=== PATIENT | male | born 1945 | race Caucasian/White ===

== ENCOUNTER → 2016-11-15 | Outpatient (CLI) | payer MEDICARE ==
[~2016-11-15] MED LIST: CATHETER FLUSH 10 ML SYR IV PRN; IOHEXOL 350 MG/ML 100 ML (OMNIPAQUE 350) VIAL IV ONE; NS 100 ML (IVPB) BAG IV ONE
--- OUTSIDE RECORDS SUMMARY | 2016-11-15 11:55 | XMS REPORT | Continuity of Care Document ---
Author Author [facility] Organization [facility] Address Unknown Phone Unavailable Care Team Providers Care It Sales Representative Name Role Phone MARS REESE MD PCP Insurance Providers Payer Name Policy Number Subscriber Name Relationship [employer] [id number] Khushboo Castillo P 20 Self / Same As Patient Advance Directives Directive Response Recorded Date/Time Advance Directives No 08/03/08 12:14am Health Care Power of Mixing Place Supervisor No 08/03/08 12:14am Organ Donor No [...] Discharge/Depart Date Attending Provider Discharged Recurring [facility] 03/17/16 12:56pm 11:59pm YASMINE CHAVEZ
--- NOTE | 2016-11-15 13:39 | Diagnostic Imaging Report ---
PROCEDURE: CT chest with contrast only. TECHNIQUE: Multiple contiguous axial images were obtained through the chest after administration of intravenous contrast. INDICATION: Lung cancer. COMPARISON: PET/CT of 10/15/2013. FINDINGS: Lungs and airway: Post treatment changes in the right upper lobe with medial bandlike consolidations along the mediastinum, likely from prior radiation. There is no irregular convex border of the consolidated and atelectatic lung to suggest recurrent tumor. Irregular nodularity along the right mainstem bronchus is unchanged. No concerning pulmonary nodule or mass on the left. Ill-defined spiculated nodular opacities in the superior left upper lobe are unchanged and likely represent focus of scar of scattered centrilobular emphysema within the left lung. Pleura: No pleural effusion or pneumothorax. No pleural nodularity. Heart and mediastinum: Visualized thyroid is normal. No supraclavicular or axillary lymphadenopathy. Stable soft tissue surrounding the right mainstem bronchus. No mediastinal or hilar lymphadenopathy. No juxtaphrenic lymphadenopathy. Normal heart size without pericardial effusion. Normal caliber thoracic aorta. Upper abdomen: Stable low-attenuation nodularity of the left adrenal gland measuring up to 3.0 cm, likely from benign adenoma. No new suspicious focus in the upper abdomen. Musculoskeletal: No evidence of skeletal metastasis. Age-indeterminate but likely chronic compression fracture in the midthoracic spine. IMPRESSION: 1. Post treatment changes in the right upper hemithorax likely from radiation therapy. No evidence of recurrent neoplasm. 2. No suspicious pulmonary nodules or intrathoracic lymphadenopathy to suggest intrathoracic metastasis. 3. Stable low-attenuation nodularity of the left adrenal gland likely due to benign lipid rich adenoma. Dictated by: Dictated on workstation # [id number]
== END ==
LOC: RAD 11:51
PROVIDERS: ATTEND Nurse Practitioner Adult Health
DX: C34.11 Malignant neoplasm of upper lobe, right bronchus or lung (principal)
CPT/HCPCS: 71260

== ENCOUNTER 2016-11-29 10:33 | Outpatient (RCR) | payer MEDICARE ==
--- OUTSIDE RECORDS SUMMARY | 2016-11-15 10:29 | XMS REPORT | Continuity of Care Document ---
Author Author [facility] Organization [facility] Address Unknown Phone Unavailable Care Team Providers Care Collator Hand Name Role Phone MARS REESE MD PCP Insurance Providers Payer Name Policy Number Subscriber Name Relationship [employer] [id number] Khushboo Castillo P 20 Self / Same As Patient Advance Directives Directive Response Recorded Date/Time Advance Directives No 08/03/08 12:14am Health Care Power of Dietary Supervisor No 08/03/08 12:14am Organ Donor No 08/03/08 12:14am Problems No problem information available. Medications No medication information available. Social History Social History Problem Response Recorded Date/Time Recent Foreign Travel N [place] 03/17/2016 12:56pm Hospital Discharge Instructions No hospital discharge instructions. Plan of Care Prescriptions See Medication Section Functional Status No functional status results. Allergies, Adverse Reactions, Alerts No allergy information available. Immunizations No immunization records. Vital Signs No known vital signs results. Results Laboratory Results Test Name Result Units Flags Reference Collection Date/Time Result Date/ Time Comments White Blood Count 6.6 10^3/uL 4.3-11.0 03/17/2016 1:22pm 03/17/2016 1: 30pm Red Blood Count 4.86 10^6/uL 4.35-5.85 03/17/2016 1:22pm 03/17/2016 1: 30pm Hemoglobin 14.5 G/DL 13.3-17.7 03/17/2016 1:22pm 03/17/2016 1:30pm Hematocrit 43 % 40-54 03/17/2016 1:03/17/2016 1:30pm Mean Corpuscular Volume 88 FL 80-99 03/17/2016 1:03/17/2016 1: 30pm Mean Corpuscular Hemoglobin 30 PG 25-34 03/17/2016 1:03/17/2016 1: 30pm Mean Corpuscular Hemoglobin Concent 34 G/DL 32-36 03/17/2016 1:03/2016 1:30pm Red Cell Distribution Width 14.4 % 10.0-14.5 03/17/2016 1:2015 1:30pm Platelet Count 215 10^3/uL 130-400 03/17/2016 1:03/17/2016 1:30pm Mean Platelet Volume 9.4 FL 7.4-10.4 03/17/2016 1:03/17/2016 1: 30pm Neutrophils (%) (Auto) 77 % H 42-75 03/17/2016 1:03/17/2016 1:30pm Lymphocytes (%) (Auto) 12 % 12-44 03/17/2016 1:03/17/2016 1:30pm Monocytes (%) (Auto) 10 % 0-12 03/17/2016 1:03/17/2016 1:30pm Eosinophils (%) (Auto) 2 % 0-10 03/17/2016 1:03/17/2016 1:30pm Basophils (%) (Auto) 1 % 0-10 03/17/2016 1:03/17/2016 1:30pm Neutrophils # (Auto) 5.1 X 10^3 1.8-7.8 03/17/2016 1:03/17/2016 1: 30pm Lymphocytes # (Auto) 0.8 X 10^3 L 1.0-4.0 03/17/2016 1:03/17/2016 1: 30pm Monocytes # (Auto) 0.6 X 10^3 0.0-1.0 03/17/2016 1:03/17/2016 1: 30pm Eosinophils # (Auto) 0.1 10^3/uL 0.0-0.3 03/17/2016 1:03/17/2016 1 :30pm Basophils # (Auto) 0.1 10^3/uL 0.0-0.1 03/17/2016 1:03/17/2016 1: 30pm Sodium Level 143 MMOL/L 135-145 03/17/2016 1:03/17/2016 2:10pm Potassium Level 4.8 MMOL/L 3.6-5.0 03/17/2016 1:03/17/2016 2:10pm Chloride Level 106 MMOL/L 98-107 03/17/2016 1:03/17/2016 2:10pm Carbon Dioxide Level 34 MMOL/L H 21-32 03/17/2016 1:03/17/2016 2: 10pm Anion Gap 3 MMOL/L L 5-14 03/17/2016 1:03/17/2016 2:10pm Blood Urea Nitrogen 15 MG/DL 7-18 03/17/2016 1:03/17/2016 2:10pm Creatinine 1.03 MG/DL 0.60-1.30 03/17/2016 1:03/17/2016 2:10pm BUN/Creatinine Ratio 15 03/17/2016 1:03/17/2016 2:10pm Estimat Glomerular Filtration Rate > 60 03/17/2016 1:2015 2:10pm GFR INTERPRETIVE DATA UNITS FOR ESTIMATED GFR (eGFR): mL/min/1.73 M2 REFERENCE RANGE FOR ESTIMATED GFR (eGFR) eGFR NORMAL eGFR >60 MODERATELY DECREASED eGFR 30-59 SEVERLY DECREASED eGFR 15-29 KIDNEY FAILURE <15 (OR DIALYSIS) Glucose Level 82 MG/DL 70-105 03/17/2016 1:03/17/2016 2:10pm Calcium Level 9.4 MG/DL 8.5-10.1 03/17/2016 1:03/17/2016 2:10pm Total Bilirubin 0.6 MG/DL 0.1-1.0 03/17/2016 1:03/17/2016 2:10pm Alkaline Phosphatase 55 U/L 40-136 03/17/2016 1:03/17/2016 2:10pm Aspartate Amino Transf (AST/SGOT) 17 U/L 5-34 03/17/2016 1:2015 2:10pm Alanine Aminotransferase (ALT/SGPT) 11 U/L 0-55 03/17/2016 1:22pm 03/17 2:10pm Total Protein 6.4 G/DL 6.4-8.2 03/17/2016 1:22pm 03/17/2016 2:10pm Albumin 4.0 G/DL 3.2-4.5 03/17/2016 1:22pm 03/17/2016 2:10pm Procedures No known history of procedures. Encounters Encounter Location Arrival/Admit Date Discharge/Depart Date Attending Provider Discharged Recurring [facility] 03/17/16 12:56pm 11:59pm YASMINE CHAVEZ
[2016-11-15 11:28] LABS: BASOPHILS # (AUTO) 0.1 10^3/uL (0.0-0.1); BASOPHILS % (AUTO) 1 % (0-10); EOSINOPHILS # (AUTO) 0.2 10^3/uL (0.0-0.3); EOSINOPHILS % (AUTO) 4 % (0-10); LYMPHOCYTES # (AUTO) 0.8 X 10^3 (1.0-4.0); LYMPHOCYTES % (AUTO) 13 % (12-44); MEAN CORPUSCULAR HEMOGLOBIN 29 PG (25-34); MEAN CORPUSCULAR HGB CONC 33 G/DL (32-36); MEAN CORPUSCULAR VOLUME 87 FL (80-99); MEAN PLATELET VOLUME 9.5 FL (7.4-10.4); MONOCYTES # (AUTO) 0.5 X 10^3 (0.0-1.0); MONOCYTES % (AUTO) 9 % (0-12); NEUTROPHILS # (AUTO) 4.2 X 10^3 (1.8-7.8); NEUTROPHILS % (AUTO) 72 % (42-75); PLATELET COUNT 218 10^3/uL (130-400); RED CELL DISTRIBUTION WIDTH 14.9 % (10.0-14.5); WHITE BLOOD COUNT 5.8 10^3/uL (4.3-11.0)
[2016-11-15 12:38] LABS: ALANINE AMINOTRANSFERASE 15 U/L (0-55); ALBUMIN 3.8 G/DL (3.2-4.5); ANION GAP 8 MMOL/L (5-14); ASPARTATE AMINO TRANSFERASE 19 U/L (5-34); BILIRUBIN,TOTAL 0.7 MG/DL (0.1-1.0); BLOOD UREA NITROGEN 17 MG/DL (7-18); BUN/CREATININE RATIO 15; CALCIUM 8.8 MG/DL (8.5-10.1); CARBON DIOXIDE 27 MMOL/L (21-32); CHLORIDE 106 MMOL/L (98-107); GFR ESTIMATED > 60; GLUCOSE 83 MG/DL (70-105); SODIUM 141 MMOL/L (135-145)
== END 2017-02-13 | disposition home or self-care (01) ==
LOC: ONC 10:33
PROVIDERS: ATTEND Internal Medicine Hematology & Oncology
DX: Z08 Encounter for follow-up examination after completed treatment for malignant neoplasm (principal); Z85.118 Personal history of other malignant neoplasm of bronchus and lung; N18.3 Chronic kidney disease, stage 3 (moderate); M81.0 Age-related osteoporosis without current pathological fracture; F17.220 Nicotine dependence, chewing tobacco, uncomplicated; Z79.82 Long term (current) use of aspirin; Z92.21 Personal history of antineoplastic chemotherapy; Z92.3 Personal history of irradiation
CPT/HCPCS: 36415; 80053; 85025; 99213

== ENCOUNTER 2017-07-31 10:09 | Outpatient (RCR) | payer MEDICARE ==
[2017-07-31 10:50] LABS: BASOPHILS # (AUTO) 0.1 10^3/uL (0.0-0.1); BASOPHILS % (AUTO) 1 % (0-10); EOSINOPHILS # (AUTO) 0.2 10^3/uL (0.0-0.3); EOSINOPHILS % (AUTO) 3 % (0-10); LYMPHOCYTES # (AUTO) 0.8 X 10^3 (1.0-4.0); LYMPHOCYTES % (AUTO) 13 % (12-44); MEAN CORPUSCULAR HEMOGLOBIN 30 PG (25-34); MEAN CORPUSCULAR HGB CONC 34 G/DL (32-36); MEAN CORPUSCULAR VOLUME 88 FL (80-99); MEAN PLATELET VOLUME 9.6 FL (7.4-10.4); MONOCYTES # (AUTO) 0.6 X 10^3 (0.0-1.0); MONOCYTES % (AUTO) 10 % (0-12); NEUTROPHILS # (AUTO) 4.3 X 10^3 (1.8-7.8); NEUTROPHILS % (AUTO) 72 % (42-75); PLATELET COUNT 180 10^3/uL (130-400); RED BLOOD COUNT 4.83 10^6/uL (4.35-5.85); RED CELL DISTRIBUTION WIDTH 14.2 % (10.0-14.5)
--- NOTE | 2017-07-31 11:15 | Diagnostic Imaging Report ---
INDICATION: Lung carcinoma. TECHNIQUE: 2-view chest 10:36 AM. CORRELATION STUDY: 03/17/2016. FINDINGS: Consolidated appearance of the right lung apex is again demonstrated, may be owing to pleural thickening versus some consolidated lung. There is also tenting and scarring about the right diaphragm with pleural thickening present. The left lung demonstrate minimal areas of likely scar like formation emanating from the suprahilar region. This is relatively stable in its appearance. Heart size and mildly prominent mediastinum are generally stable. Vasculature within normal limits. Unchanged compressed mid thoracic vertebral body and degenerative changes of the thoracic spine. IMPRESSION: Asymmetric areas of likely scarlike formation and volume loss of the right lung overall generally stable/ perhaps very slightly progressed involving the right lung apex. Additional likely scarring over the left perihilar region. Dictated by: Dictated on workstation # [id number]
[2017-07-31 11:36] LABS: ALANINE AMINOTRANSFERASE 18 U/L (0-55); ALBUMIN 3.8 GM/DL (3.2-4.5); ANION GAP 4 MMOL/L (5-14); ASPARTATE AMINO TRANSFERASE 19 U/L (5-34); BILIRUBIN,TOTAL 0.7 MG/DL (0.1-1.0); BLOOD UREA NITROGEN 16 MG/DL (7-18); BUN/CREATININE RATIO 15; CARBON DIOXIDE 30 MMOL/L (21-32); CHLORIDE 106 MMOL/L (98-107); CREATININE SERUM 1.08 MG/DL (0.60-1.30); GFR ESTIMATED > 60; GLUCOSE 93 MG/DL (70-105); SODIUM 140 MMOL/L (135-145); TOTAL PROTEIN 6.5 GM/DL (6.4-8.2)
== END 2017-08-07 09:45 | disposition home or self-care (01) ==
LOC: ONC 10:09
PROVIDERS: ATTEND Internal Medicine Hematology & Oncology
DX: Z08 Encounter for follow-up examination after completed treatment for malignant neoplasm (principal); Z85.118 Personal history of other malignant neoplasm of bronchus and lung; N18.3 Chronic kidney disease, stage 3 (moderate); M81.0 Age-related osteoporosis without current pathological fracture; F17.220 Nicotine dependence, chewing tobacco, uncomplicated; Z79.82 Long term (current) use of aspirin; Z92.21 Personal history of antineoplastic chemotherapy; Z92.3 Personal history of irradiation
CPT/HCPCS: 36415; 71020; 80053; 85025; 99213

== ENCOUNTER → 2018-01-15 | Outpatient (CLI) | payer MEDICARE ==
[2018-01-15 10:19] LABS: BASOPHILS % (AUTO) 0 % (0-10); EOSINOPHILS # (AUTO) 0.1 10^3/uL (0.0-0.3); EOSINOPHILS % (AUTO) 1 % (0-10); HEMATOCRIT 41 % (40-54); HEMOGLOBIN 13.5 G/DL (13.3-17.7); LYMPHOCYTES # (AUTO) 0.7 X 10^3 (1.0-4.0); LYMPHOCYTES % (AUTO) 5 % (12-44); MEAN CORPUSCULAR HEMOGLOBIN 30 PG (25-34); MEAN CORPUSCULAR HGB CONC 33 G/DL (32-36); MEAN CORPUSCULAR VOLUME 90 FL (80-99); MEAN PLATELET VOLUME 9.7 FL (7.4-10.4); MONOCYTES # (AUTO) 1.3 X 10^3 (0.0-1.0); MONOCYTES % (AUTO) 10 % (0-12); NEUTROPHILS # (AUTO) 11.4 X 10^3 (1.8-7.8); NEUTROPHILS % (AUTO) 85 % (42-75); PLATELET COUNT 173 10^3/uL (130-400); RED BLOOD COUNT 4.58 10^6/uL (4.35-5.85); RED CELL DISTRIBUTION WIDTH 16.3 % (10.0-14.5); WHITE BLOOD COUNT 13.5 10^3/uL (4.3-11.0)
[2018-01-15 10:39] LABS: ALANINE AMINOTRANSFERASE 37 U/L (0-55); ALBUMIN 3.5 GM/DL (3.2-4.5); ALKALINE PHOSPHATASE 52 U/L (40-136); BILIRUBIN,TOTAL 0.7 MG/DL (0.1-1.0); BUN/CREATININE RATIO 20; CALCIUM 8.7 MG/DL (8.5-10.1); CARBON DIOXIDE 33 MMOL/L (21-32); CHLORIDE 102 MMOL/L (98-107); CREATININE SERUM 0.96 MG/DL (0.60-1.30); GFR ESTIMATED > 60; GLUCOSE 79 MG/DL (70-105); POTASSIUM 3.7 MMOL/L (3.6-5.0); SODIUM 139 MMOL/L (135-145); TOTAL PROTEIN 5.9 GM/DL (6.4-8.2)
== END ==
LOC: ONC 10:00
PROVIDERS: ATTEND Internal Medicine Hematology & Oncology
DX: Z08 Encounter for follow-up examination after completed treatment for malignant neoplasm (principal); Z85.118 Personal history of other malignant neoplasm of bronchus and lung; N18.3 Chronic kidney disease, stage 3 (moderate); M81.0 Age-related osteoporosis without current pathological fracture; F17.220 Nicotine dependence, chewing tobacco, uncomplicated; Z79.82 Long term (current) use of aspirin; Z92.21 Personal history of antineoplastic chemotherapy; Z92.3 Personal history of irradiation
CPT/HCPCS: 36415; 80053; 83615; 85025; 99213

== ENCOUNTER 2018-03-28 12:43 | Outpatient (RCR) | payer MEDICARE ==
[2018-02-14 09:54] LABS: BASOPHILS % (AUTO) 0 % (0-10); EOSINOPHILS % (AUTO) 0 % (0-10); HEMATOCRIT 40 % (40-54); HEMOGLOBIN 13.1 G/DL (13.3-17.7); LYMPHOCYTES # (AUTO) 0.5 X 10^3 (1.0-4.0); LYMPHOCYTES % (AUTO) 4 % (12-44); MEAN CORPUSCULAR HEMOGLOBIN 30 PG (25-34); MEAN CORPUSCULAR HGB CONC 33 G/DL (32-36); MEAN CORPUSCULAR VOLUME 91 FL (80-99); MEAN PLATELET VOLUME 9.4 FL (7.4-10.4); MONOCYTES # (AUTO) 0.5 X 10^3 (0.0-1.0); MONOCYTES % (AUTO) 5 % (0-12); NEUTROPHILS # (AUTO) 10.3 X 10^3 (1.8-7.8); NEUTROPHILS % (AUTO) 90 % (42-75); PLATELET COUNT 168 10^3/uL (130-400); RED BLOOD COUNT 4.41 10^6/uL (4.35-5.85); RED CELL DISTRIBUTION WIDTH 17.3 % (10.0-14.5); WHITE BLOOD COUNT 11.4 10^3/uL (4.3-11.0)
[2018-02-14 10:12] LABS: ALANINE AMINOTRANSFERASE 29 U/L (0-55); ALKALINE PHOSPHATASE 48 U/L (40-136); BILIRUBIN,TOTAL 0.4 MG/DL (0.1-1.0); BUN/CREATININE RATIO 20; CALCIUM 9.1 MG/DL (8.5-10.1); CARBON DIOXIDE 33 MMOL/L (21-32); CHLORIDE 108 MMOL/L (98-107); CREATININE SERUM 0.86 MG/DL (0.60-1.30); GFR ESTIMATED > 60; GLUCOSE 111 MG/DL (70-105); POTASSIUM 4.3 MMOL/L (3.6-5.0); SODIUM 144 MMOL/L (135-145); TOTAL PROTEIN 6.5 GM/DL (6.4-8.2)
[2018-03-28 13:01] LABS: BASOPHILS # (AUTO) 0.1 10^3/uL (0.0-0.1); BASOPHILS % (AUTO) 1 % (0-10); EOSINOPHILS # (AUTO) 0.2 10^3/uL (0.0-0.3); EOSINOPHILS % (AUTO) 3 % (0-10); HEMATOCRIT 42 % (40-54); HEMOGLOBIN 13.9 G/DL (13.3-17.7); LYMPHOCYTES # (AUTO) 0.8 X 10^3 (1.0-4.0); LYMPHOCYTES % (AUTO) 10 % (12-44); MEAN CORPUSCULAR HEMOGLOBIN 30 PG (25-34); MEAN CORPUSCULAR HGB CONC 33 G/DL (32-36); MEAN CORPUSCULAR VOLUME 91 FL (80-99); MEAN PLATELET VOLUME 9.8 FL (7.4-10.4); MONOCYTES # (AUTO) 0.8 X 10^3 (0.0-1.0); MONOCYTES % (AUTO) 10 % (0-12); NEUTROPHILS # (AUTO) 6.1 X 10^3 (1.8-7.8); NEUTROPHILS % (AUTO) 76 % (42-75); PLATELET COUNT 223 10^3/uL (130-400); RED BLOOD COUNT 4.63 10^6/uL (4.35-5.85); RED CELL DISTRIBUTION WIDTH 15.8 % (10.0-14.5)
[2018-03-28 13:21] LABS: ALANINE AMINOTRANSFERASE 18 U/L (0-55); ALKALINE PHOSPHATASE 50 U/L (40-136); BILIRUBIN,TOTAL 0.8 MG/DL (0.1-1.0); BUN/CREATININE RATIO 19; CALCIUM 9.3 MG/DL (8.5-10.1); CARBON DIOXIDE 22 MMOL/L (21-32); CHLORIDE 110 MMOL/L (98-107); CREATININE SERUM 1.03 MG/DL (0.60-1.30); GFR ESTIMATED > 60; GLUCOSE 62 MG/DL (70-105); POTASSIUM 4.4 MMOL/L (3.6-5.0); SODIUM 142 MMOL/L (135-145); TOTAL PROTEIN 6.8 GM/DL (6.4-8.2)
[2018-04-04] MEDS ORDERED: ASPI-983 PO (11:10)
[2018-04-04] MEDS ORDERED: ALEN70TA47 PO (11:10)
[2018-04-04] MEDS ORDERED: CALC-901 PO (11:10)
[2018-04-04] MEDS ORDERED: BENZ-36 PO (11:10)
[2018-04-04] MEDS ORDERED: PRED10TA22 PO (11:10)
[2018-04-04] MEDS ORDERED: OMEP20CA12 PO (11:10)
[2018-04-04] MEDS ORDERED: GUAI600T43 PO (11:10)
[2018-04-04] MEDS ORDERED: IPRA3AMP31 IH (11:10)
[2018-04-04] MEDS ORDERED: KRIL1CAP20 PO (11:10)
[2018-04-04] MEDS ORDERED: METOPROLOL 25MG (11:10)
[2018-04-04] MEDS ORDERED: IPRA4AER IH (11:32)
[2018-04-04] MEDS ORDERED: METO-333 PO (11:32)
== END 2018-05-15 | disposition home or self-care (01) ==
LOC: ONC 12:43
PROVIDERS: ATTEND Internal Medicine Hematology & Oncology
DX: Z08 Encounter for follow-up examination after completed treatment for malignant neoplasm (principal); Z85.118 Personal history of other malignant neoplasm of bronchus and lung; N18.3 Chronic kidney disease, stage 3 (moderate); M81.0 Age-related osteoporosis without current pathological fracture; F17.220 Nicotine dependence, chewing tobacco, uncomplicated; Z79.82 Long term (current) use of aspirin; Z92.21 Personal history of antineoplastic chemotherapy; Z92.3 Personal history of irradiation
CPT/HCPCS: 36415; 80053; 83615; 85025; 99213

== ENCOUNTER 2018-04-04 04:05 | Inpatient (IN) | payer MEDICARE ==
[2018-04-04] VITALS (13 sets, daily range): BP systolic 100–142; BP diastolic 61–87
[~2018-04-04] VITALS: Ht 172.7 cm; Wt 59.0 kg
--- OUTSIDE RECORDS SUMMARY | 2018-04-04 07:03 | XMS REPORT | Continuity of Care Document ---
Author Author [facility] Organization [facility] Address Unknown Phone Unavailable Allergies Active Description Code Type Severity Reaction Onset Reported/Identified Relationship to Patient Clinical Status Yes No Allergy Information Available [id number] Drug Allergy Unknown N/A 2016 Medications There is no data. Problems Date Dx Coded Attending Type Code Diagnosis Diagnosed By YASMINE CHAVEZ Ot F17.220 NICOTINE DEPENDENCE, CHEWING TOBACCO, UN YASMINE CHAVEZ Ot M81.0 AGE-RELATED OSTEOPOROSIS W/O CURRENT PAT YASMINE CHAVEZ Ot N18.3 CHRONIC KIDNEY DISEASE, STAGE 3 (MODERAT YASMINE CHAVEZ Ot Z08 ENCNTR FOR FOLLOW-UP EXAM AFTER TRTMT FO YASMINE CHAVEZ Ot Z79.82 LONGTERM (CURRENT) USE OF ASPIRIN YASMINE CHAVEZ Ot Z85.118 PERSONAL HISTORY OF MALIGNANT NEOPLASM O YASMINE CHAVEZ Ot Z92.21 PERSONAL HISTORY OF ANTINEOPLASTIC CHEMO YASMINE CHAVEZ Ot Z92.3 PERSONAL HISTORY OF IRRADIATION 01/25/2012 Ot 733.00 OSTEOPOROSIS NOS 01/25/2012 Ot V10.11 HX- BRONCHOGENIC MALIGNAN 01/25/2012 Ot V58.66 LONG-TERM ( CURRENT) USE OF ASPIRIN 01/25/2012 Ot V58.69 OTH MED,LT, CURRENT USE 01/25/2012 Ot V58.81 FIT/ADJ VASCULAR CATHETER 01/25/2012 Ot V67.1 RADIOTHERAPY FOLLOW-UP 01/25/2012 Ot V67.2 CHEMOTHERAPY FOLLOW-UP 05/30/2012 Ot 733.00 OSTEOPOROSIS NOS 05/30/2012 Ot V10.11 HX- BRONCHOGENIC MALIGNAN 05/30/2012 Ot V58.66 LONG-TERM ( CURRENT) USE OF ASPIRIN 05/30/2012 Ot V58.69 OTH MED,LT, CURRENT USE 05/30/2012 Ot V67.1 RADIOTHERAPY FOLLOW-UP 05/30/2012 Ot V67.2 CHEMOTHERAPY FOLLOW-UP 10/03/2012 Ot 733.00 OSTEOPOROSIS NOS 10/03/2012 Ot V10.11 HX- BRONCHOGENIC MALIGNAN 10/03/2012 Ot V58.66 LONG-TERM ( CURRENT) USE OF ASPIRIN 10/03/2012 Ot V58.69 OTH MED,LT, CURRENT USE 10/03/2012 Ot V67.1 RADIOTHERAPY FOLLOW-UP 10/03/2012 Ot V67.2 CHEMOTHERAPY FOLLOW-UP 01/20/2013 Ot 733.00 OSTEOPOROSIS NOS 01/20/2013 Ot V10.11 HX- BRONCHOGENIC MALIGNAN 01/20/2013 Ot V58.66 LONG-TERM ( CURRENT) USE OF ASPIRIN 01/20/2013 Ot V58.69 OTH MED,LT, CURRENT USE 01/20/2013 Ot V67.1 RADIOTHERAPY FOLLOW-UP 01/20/2013 Ot V67.2 CHEMOTHERAPY FOLLOW-UP 02/19/2014 KATHY, YASMINE Gama Ot 285.9 ANEMIA NOS 06/10/2014 KATHY, YASMINE Gama Ot 285.9 ANEMIA NOS 06/10/2014 KATHY, YASMINE Gama Ot 585.3 CHRONIC KIDNEY DISEASE, STAGE III (MODER 06/10/2014 KATHY YASMINE Gama Ot 733.00 OSTEOPOROSIS NOS 06/10/2014 KATHY YASMINE Gama Ot V10.11 HX-BRONCHOGENIC MALIGNAN 06/10/2014 KATHYYASMINE Ot V58.66 LONG-TERM (CURRENT) USE OF ASPIRIN 06/10/2014 YASMINE CHAVEZ Ot V58.69 OTH MED,LT,CURRENT USE 06/10/2014 KATHYYASMINE Ot V67.1 RADIOTHERAPY FOLLOW-UP 06/10/2014 YASMINE CHAVEZ Ot V67.2 CHEMOTHERAPY FOLLOW-UP 11/10/2014 KAM MCKEON RACKING MACHINE OPERATOR Ot 285.9 11/10/2014 KAM MCKEON RACKING MACHINE OPERATOR Ot 585.3 11/10/2014 KAM MCKEON RACKING MACHINE OPERATOR Ot 733.00 11/10/2014 KAM MCKEON RACKING MACHINE OPERATOR Ot V10.11 11/10/2014 KAM MCKEON RACKING MACHINE OPERATOR Ot V58.66 11/10/2014 KAM MCKEON RACKING MACHINE OPERATOR Ot V58.69 11/10/2014 KAM MCKEON RACKING MACHINE OPERATOR Ot V67.1 11/10/2014 KAM MCKEON RACKING MACHINE OPERATOR Ot V67.2 03/11/2015 KATHY, BOBAN N Ot 285.9 03/11/2015 KATHY, BOBAN N Ot 585.3 03/11/2015 KATHY, BOBAN N Ot 733.00 03/11/2015 KATHY, BOBAN N Ot V10.11 03/11/2015 KATHY, BOBAN N Ot V58.66 03/11/2015 KATHY, BOBAN N Ot V58.69 03/11/2015 KATHY, BOBAN N Ot V67.1 03/11/2015 KATHY, BOBAN N Ot V67.2 03/19/2015 KATHY, BOBAN N Ot 285.9 03/19/2015 KATHY, BOBAN N Ot 585.3 03/19/2015 KATHY, BOBAN N Ot 733.00 03/19/2015 KATHY, BOBAN N Ot V10.11 03/19/2015 KATHY, BOBAN N Ot V58.66 03/19/2015 KATHY, BOBAN N Ot V58.69 03/19/2015 KATHY, BOBAN N Ot V67.1 03/19/2015 KATHY, BOBAN N Ot V67.2 03/23/2015 KATHY, BOBAN N Ot 285.9 03/23/2015 KATHY, BOBAN N Ot 585.3 03/23/2015 KATHY, BOBAN N Ot 733.00 03/23/2015 KATHY, BOBAN N Ot V10.11 03/23/2015 KATHY, BOBAN N Ot V58.66 03/23/2015 KATHY, BOBAN N Ot V58.69 03/23/2015 KATHY, BOBAN N Ot V67.1 03/23/2015 KATHY, BOBAN N Ot V67.2 05/06/2015 KATHY, BOBAN N Ot 285.9 05/06/2015 KATHY, BOBAN N Ot 585.3 05/06/2015 KATHY, BOBAN N Ot 733.00 05/06/2015 KATHY, BOBAN N Ot V10.11 05/06/2015 KATHYYASMINE VERDIN N Ot V58.66 05/06/2015 KATHYYASMINE VERDIN N Ot V58.69 05/06/2015 KATHYYASMINE VERDIN N Ot V67.1 05/06/2015 YASMINE CHAVEZ N Ot V67.2 06/17/2015 YASMINE CHAVEZ N Ot 285.9 ANEMIA NOS 06/17/2015 YASMINE CHAVEZ N Ot 585.3 CHRONIC KIDNEY DISEASE, STAGE III (MODER 06/17/2015 KATHYYASMINE VERDIN N Ot 733.00 OSTEOPOROSIS NOS 06/17/2015 KATHYYASMINE VERDIN N Ot V10.11 HX-BRONCHOGENIC MALIGNAN 06/17/2015 KATHYYASMINE VERDIN N Ot V58.66 LONG-TERM (CURRENT) USE OF ASPIRIN 06/17/2015 YASMINE CHAVEZ N Ot V58.69 OTH MED,LT,CURRENT USE 06/17/2015 YASMINE CHAVEZ N Ot V67.1 RADIOTHERAPY FOLLOW-UP 06/17/2015 YASMINE CHAVEZ N Ot V67.2 CHEMOTHERAPY FOLLOW-UP 10/12/2015 KAM MCKEON RACKING MACHINE OPERATOR Ot F17.220 10/12/2015 KAM MCKEON RACKING MACHINE OPERATOR Ot M81.0 10/12/2015 KAM MCKEON RACKING MACHINE OPERATOR Ot Z08 10/12/2015 KAM MCKEON RACKING MACHINE OPERATOR Ot Z79.899 10/12/2015 KAM MCKEON RACKING MACHINE OPERATOR Ot Z85.118 10/12/2015 KAM MCKEON RACKING MACHINE OPERATOR Ot Z92.21 10/12/2015 KAM MCKEON RACKING MACHINE OPERATOR Ot Z92.3 03/10/2016 YASMINE CHAVEZ N Ot 285.9 ANEMIA NOS 03/10/2016 YASMINE CHAVEZ N Ot 585.3 CHRONIC KIDNEY DISEASE, STAGE III (MODER 03/10/2016 KATHYYASMINE VERDIN N Ot 733.00 OSTEOPOROSIS NOS 03/10/2016 YASMINE CHAVEZ N Ot V10.11 HX-BRONCHOGENIC MALIGNAN 03/10/2016 YASMINE CHAVEZ N Ot V58.66 LONG-TERM (CURRENT) USE OF ASPIRIN 03/10/2016 YASMINE CHAVEZ N Ot V58.69 OTH MED,LT,CURRENT USE 03/10/2016 YASMINE CHAVEZ N Ot V67.1 RADIOTHERAPY FOLLOW-UP 03/10/2016 YASMINE CHAVEZ N Ot V67.2 CHEMOTHERAPY FOLLOW-UP 03/18/2016 YASMINE CHAVEZ N Ot F17.220 NICOTINE DEPENDENCE, CHEWING TOBACCO, UN 03/18/2016 YASMINE CHAVEZ N Ot M81.0 AGE-RELATED OSTEOPOROSIS W/O CURRENT PAT 03/18/2016 YASMINE CHAVEZ N Ot N18.3 CHRONIC KIDNEY DISEASE, STAGE 3 (MODERAT 03/18/2016 YASMINE CHAVEZ N Ot Z08 ENCNTR FOR FOLLOW-UP EXAM AFTER TRTMT FO 03/18/2016 YASMINE CHAVEZ N Ot 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 03/18/2016 KATHY, BOBAN N Ot Z85.118 PERSONAL HISTORY OF MALIGNANT NEOPLASM O 03/18/2016 YASMINE CHAVEZ N Ot Z92.21 PERSONAL HISTORY OF ANTINEOPLASTIC CHEMO 03/18/2016 YASMINE CHAVEZ N Ot Z92.3 PERSONAL HISTORY OF IRRADIATION 05/05/2016 YASMINE CHAVEZ N Ot F17.220 NICOTINE DEPENDENCE, CHEWING TOBACCO, UN 05/05/2016 YASMINE CHAVEZ N Ot M81.0 AGE-RELATED OSTEOPOROSIS W/O CURRENT PAT 05/05/2016 YASMINE CHAVEZ N Ot N18.3 CHRONIC KIDNEY DISEASE, STAGE 3 (MODERAT 05/05/2016 YASMINE CHAVEZ N Ot Z08 ENCNTR FOR FOLLOW-UP EXAM AFTER TRTMT FO 05/05/2016 YASMINE CHAVEZ N Ot Z79.82 LONGTERM (CURRENT) USE OF ASPIRIN 05/05/2016 YASMINE CHAVEZ N Ot Z85.118 PERSONAL HISTORY OF MALIGNANT NEOPLASM O 05/05/2016 YASMINE CHAVEZ N Ot Z92.21 PERSONAL HISTORY OF ANTINEOPLASTIC CHEMO 05/05/2016 KATHYYASMINE VERDIN N Ot Z92.3 PERSONAL HISTORY OF IRRADIATION 06/15/2016 YASMINE CHAVEZ N Ot F17.220 NICOTINE DEPENDENCE, CHEWING TOBACCO, UN 06/15/2016 YASMINE CHAVEZ N Ot M81.0 AGE-RELATED OSTEOPOROSIS W/O CURRENT PAT 06/15/2016 YASMINE CHAVEZ N Ot N18.3 CHRONIC KIDNEY DISEASE, STAGE 3 (MODERAT 06/15/2016 YASMINE CHAVEZ N Ot Z08 ENCNTR FOR FOLLOW-UP EXAM AFTER TRTMT FO 06/15/2016 YASMINE CHAVEZ Ot 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 06/15/2016 YASMINE CHAVEZ Ot Z85.118 PERSONAL HISTORY OF MALIGNANT NEOPLASM O 06/15/2016 YASMINE CHAVEZ N Ot Z92.21 PERSONAL HISTORY OF ANTINEOPLASTIC CHEMO 06/15/2016 YASMINE CHAVEZ Ot Z92.3 PERSONAL HISTORY OF IRRADIATION 06/16/2016 YASMINE CHAVEZ Ot F17.220 NICOTINE DEPENDENCE, CHEWING TOBACCO, UN 06/16/2016 YASMINE CHAVEZ Ot M81.0 AGE-RELATED OSTEOPOROSIS W/O CURRENT PAT 06/16/2016 YASMINE CHAVEZ Ot N18.3 CHRONIC KIDNEY DISEASE, STAGE 3 (MODERAT 06/16/2016 YASMINE CHAVEZ Ot Z08 ENCNTR FOR FOLLOW-UP EXAM AFTER TRTMT FO 06/16/2016 YASMINE CHAVEZ Ot 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 06/16/2016 YASMINE CHAVEZ Ot Z85.118 PERSONAL HISTORY OF MALIGNANT NEOPLASM O 06/16/2016 YASMINE CHAVEZ Ot Z92.21 PERSONAL HISTORY OF ANTINEOPLASTIC CHEMO 06/16/2016 YASMINE CHAVEZ Ot Z92.3 PERSONAL HISTORY OF IRRADIATION 07/12/2016 Ot 733.00 OSTEOPOROSIS NOS 07/12/2016 Ot V10.11 HX- BRONCHOGENIC MALIGNAN 07/12/2016 Ot V58.66 LONG-TERM ( CURRENT) USE OF ASPIRIN 07/12/2016 Ot V58.69 OTH MED,LT, CURRENT USE 07/12/2016 Ot V58.81 FIT/ADJ VASCULAR CATHETER 07/12/2016 Ot V67.1 RADIOTHERAPY FOLLOW-UP 07/12/2016 Ot V67.2 CHEMOTHERAPY FOLLOW-UP 07/12/2016 Ot 162.9 MAL ALEXANDRO BRONCH/LUNG NOS 07/12/2016 Ot 255.9 ADRENAL DISORDER N0S 07/12/2016 Ot 162.9 MAL ALEXANDRO BRONCH/LUNG NOS 07/12/2016 Ot 785.6 ENLARGEMENT LYMPH NODES 07/12/2016 Ot 733.00 OSTEOPOROSIS NOS 07/12/2016 Ot V10.11 HX- BRONCHOGENIC MALIGNAN 07/12/2016 Ot V58.66 LONG-TERM ( CURRENT) USE OF ASPIRIN 07/12/2016 Ot V58.69 OTH MED,LT, CURRENT USE 07/12/2016 Ot V67.1 RADIOTHERAPY FOLLOW-UP 07/12/2016 Ot V67.2 CHEMOTHERAPY FOLLOW-UP 07/12/2016 Ot 162.9 MAL ALEXANDRO BRONCH/LUNG NOS 07/12/2016 Ot V10.11 HX- BRONCHOGENIC MALIGNAN 07/12/2016 Ot V58.81 FIT/ADJ VASCULAR CATHETER 07/12/2016 Ot 162.9 MAL ALEXANDRO BRONCH/LUNG NOS 07/12/2016 Ot 162.9 MAL ALEXANDRO BRONCH/LUNG NOS 07/12/2016 Ot 733.00 OSTEOPOROSIS NOS 07/12/2016 Ot V82.81 SCREENING FOR OSTEOPOROSIS 07/12/2016 KAM MCKEON RACKING MACHINE OPERATOR Ot 733.00 OSTEOPOROSIS NOS 07/12/2016 KAM MCKEON RACKING MACHINE OPERATOR Ot V10.11 HX-BRONCHOGENIC MALIGNAN 07/12/2016 KAM MCKEON RACKING MACHINE OPERATOR Ot V58.66 LONG-TERM (CURRENT) USE OF ASPIRIN 07/12/2016 KAM MCKEON RACKING MACHINE OPERATOR Ot V58.69 OTH MED,LT,CURRENT USE 07/12/2016 KAM MCKEON RACKING MACHINE OPERATOR Ot V67.1 RADIOTHERAPY FOLLOW-UP 07/12/2016 KAM MCKEON RACKING MACHINE OPERATOR Ot V67.2 CHEMOTHERAPY FOLLOW-UP 07/12/2016 KAM MCKEON RACKING MACHINE OPERATOR Ot 162.9 MAL ALEXANDRO BRONCH/LUNG NOS 07/12/2016 KAM MCKEON RACKING MACHINE OPERATOR Ot 562.10 DIVERTICULOSIS COLON (W/O MENT OF HEMORR 07/12/2016 KAM MCKEON RACKING MACHINE OPERATOR Ot 285.9 ANEMIA NOS 07/12/2016 KAM MCKEON RACKING MACHINE OPERATOR Ot 585.3 CHRONIC KIDNEY DISEASE, STAGE III (MODER 07/12/2016 KAM MCKEON RACKING MACHINE OPERATOR Ot 733.00 OSTEOPOROSIS NOS 07/12/2016 KAM MCKEON RACKING MACHINE OPERATOR Ot V10.11 HX-BRONCHOGENIC MALIGNAN 07/12/2016 KAM MCKEON RACKING MACHINE OPERATOR Ot V58.66 LONG-TERM (CURRENT) USE OF ASPIRIN 07/12/2016 KAM MCKEON RACKING MACHINE OPERATOR Ot V58.69 OTH MED,LT,CURRENT USE 07/12/2016 KAM MCKEON RACKING MACHINE OPERATOR Ot V67.1 RADIOTHERAPY FOLLOW-UP 07/12/2016 LINDA KAM Oleary RACKING MACHINE OPERATOR Ot V67.2 CHEMOTHERAPY FOLLOW-UP 07/12/2016 MCKEONKAM RACKING MACHINE OPERATOR Ot 285.9 ANEMIA NOS 07/12/2016 MCKEONKAM Oleary RACKING MACHINE OPERATOR Ot 585.3 CHRONIC KIDNEY DISEASE, STAGE III (MODER 07/12/2016 KAM MCKEON RACKING MACHINE OPERATOR Ot 733.00 OSTEOPOROSIS NOS 07/12/2016 LINDA KAM Mamta RACKING MACHINE OPERATOR Ot V10.11 HX-BRONCHOGENIC MALIGNAN 07/12/2016 MCKEONKAM Oleary RACKING MACHINE OPERATOR Ot V58.66 LONG-TERM (CURRENT) USE OF ASPIRIN 07/12/2016 LINDA KAM Oleary RACKING MACHINE OPERATOR Ot V58.69 OTH MED,LT,CURRENT USE 07/12/2016 LINDA KAM Oleary RACKING MACHINE OPERATOR Ot V67.1 RADIOTHERAPY FOLLOW-UP 07/12/2016 LINDA KAM Mamta RACKING MACHINE OPERATOR Ot V67.2 CHEMOTHERAPY FOLLOW-UP 07/12/2016 KANNAN MCKEONSUMAN Mamta RACKING MACHINE OPERATOR Ot F17.220 NICOTINE DEPENDENCE, CHEWING TOBACCO, UN 07/12/2016 LINDA KAM Oleary RACKING MACHINE OPERATOR Ot M81.0 AGE-RELATED OSTEOPOROSIS W/O CURRENT PAT 07/12/2016 MCKEON KAM Oleary RACKING MACHINE OPERATOR Ot Z08 ENCNTR FOR FOLLOW-UP EXAM AFTER TRTMT FO 07/12/2016 KANNAN MCKEONSUMAN Oleary RACKING MACHINE OPERATOR Ot Z79.899 OTHER LONGTERM (CURRENT) DRUG THERAPY 07/12/2016 LINDA KAM Oleary RACKING MACHINE OPERATOR Ot Z85.118 PERSONAL HISTORY OF MALIGNANT NEOPLASM O 07/12/2016 KANNAN MCKEONSUMAN Mamta RACKING MACHINE OPERATOR Ot Z92.21 PERSONAL HISTORY OF ANTINEOPLASTIC CHEMO 07/12/2016 LINDA KAM Oleary RACKING MACHINE OPERATOR Ot Z92.3 PERSONAL HISTORY OF IRRADIATION 07/12/2016 YASMINE CHAVEZ Ot F17.220 NICOTINE DEPENDENCE, CHEWING TOBACCO, UN 07/12/2016 YASMINE CHAVEZ Ot M81.0 AGE-RELATED OSTEOPOROSIS W/O CURRENT PAT 07/12/2016 YASMINE CHAVEZ Ot N18.3 CHRONIC KIDNEY DISEASE, STAGE 3 (MODERAT 07/12/2016 YASMINE CHAVEZ Ot Z08 ENCNTR FOR FOLLOW-UP EXAM AFTER TRTMT FO 07/12/2016 YASMINE CHAVEZ Ot 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 07/12/2016 YASMINE CHAVEZ N Ot Z85.118 PERSONAL HISTORY OF MALIGNANT NEOPLASM O 07/12/2016 YASMINE CHAVEZ N Ot Z92.21 PERSONAL HISTORY OF ANTINEOPLASTIC CHEMO 07/12/2016 YASMINE CHAVEZ N Ot Z92.3 PERSONAL HISTORY OF IRRADIATION 07/14/2016 YASMINE CHAVEZ N Ot F17.220 NICOTINE DEPENDENCE, CHEWING TOBACCO, UN 07/14/2016 YASMINE CHAVEZ N Ot M81.0 AGE-RELATED OSTEOPOROSIS W/O CURRENT PAT 07/14/2016 YASMINE CHAVEZ N Ot N18.3 CHRONIC KIDNEY DISEASE, STAGE 3 (MODERAT 07/14/2016 YASMINE CHAVEZ N Ot Z08 ENCNTR FOR FOLLOW-UP EXAM AFTER TRTMT FO 07/14/2016 YASMINE CHAVEZ N Ot Z79.82 LONGTERM (CURRENT) USE OF ASPIRIN 07/14/2016 YASMINE CHAVEZ N Ot Z85.118 PERSONAL HISTORY OF MALIGNANT NEOPLASM O 07/14/2016 YASMINE CHAVEZ N Ot Z92.21 PERSONAL HISTORY OF ANTINEOPLASTIC CHEMO 07/14/2016 YASMINE CHAVEZ N Ot Z92.3 PERSONAL HISTORY OF IRRADIATION 08/17/2016 KAM MCKEON RACKING MACHINE OPERATOR Ot C34.11 MALIGNANT NEOPLASM OF UPPER LOBE, RIGHT 08/17/2016 KAM MCKEON RACKING MACHINE OPERATOR Ot R91.8 OTHER NONSPECIFIC ABNORMAL FINDING OF AMIE 08/22/2016 YASMINE CHAVEZ N Ot F17.220 NICOTINE DEPENDENCE, CHEWING TOBACCO, UN 08/22/2016 YASMINE CHAVEZ N Ot M81.0 AGE-RELATED OSTEOPOROSIS W/O CURRENT PAT 08/22/2016 YASMINE CHAVEZ N Ot N18.3 CHRONIC KIDNEY DISEASE, STAGE 3 (MODERAT 08/22/2016 YASMINE CHAVEZ N Ot Z08 ENCNTR FOR FOLLOW-UP EXAM AFTER TRTMT FO 08/22/2016 YASMINE CHAVEZ N Ot 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 08/22/2016 YASMINE CHAVEZ N Ot Z85.118 PERSONAL HISTORY OF MALIGNANT NEOPLASM O 08/22/2016 YASMINE CHAVEZ N Ot Z92.21 PERSONAL HISTORY OF ANTINEOPLASTIC CHEMO 08/22/2016 YASMINE CHAVEZ N Ot Z92.3 PERSONAL HISTORY OF IRRADIATION 09/08/2016 YASMINE CHAVEZ N Ot F17.220 NICOTINE DEPENDENCE, CHEWING TOBACCO, UN 09/08/2016 YASMINE CHAVEZ N Ot M81.0 AGE-RELATED OSTEOPOROSIS W/O CURRENT PAT 09/08/2016 YASMINE CHAVEZ N Ot N18.3 CHRONIC KIDNEY DISEASE, STAGE 3 (MODERAT 09/08/2016 YASMINE CHAVEZ N Ot Z08 ENCNTR FOR FOLLOW-UP EXAM AFTER TRTMT FO 09/08/2016 YASMINE CHAVEZ N Ot 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 09/08/2016 KATHY BOBAN N Ot Z85.118 PERSONAL HISTORY OF MALIGNANT NEOPLASM O 09/08/2016 KATHY, BOBAN N Ot Z92.21 PERSONAL HISTORY OF ANTINEOPLASTIC CHEMO 09/08/2016 KATHY BOBLEMUEL N Ot Z92.3 PERSONAL HISTORY OF IRRADIATION 10/12/2016 YASMINE CHAVEZ N Ot F17.220 NICOTINE DEPENDENCE, CHEWING TOBACCO, UN 10/12/2016 YASMINE CHAVEZ N Ot M81.0 AGE-RELATED OSTEOPOROSIS W/O CURRENT PAT 10/12/2016 KATHY BOBLEMUEL N Ot N18.3 CHRONIC KIDNEY DISEASE, STAGE 3 (MODERAT 10/12/2016 KATHY BOBAN N Ot Z08 ENCNTR FOR FOLLOW-UP EXAM AFTER TRTMT FO 10/12/2016 YASMINE CHAVEZ N Ot 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 10/12/2016 YASMINE CHAVEZ N Ot Z85.118 PERSONAL HISTORY OF MALIGNANT NEOPLASM O 10/12/2016 YASMINE CHAVEZ N Ot Z92.21 PERSONAL HISTORY OF ANTINEOPLASTIC CHEMO 10/12/2016 KATHY BOBAN N Ot Z92.3 PERSONAL HISTORY OF IRRADIATION 10/18/2016 YASMINE CHAVEZ N Ot F17.220 NICOTINE DEPENDENCE, CHEWING TOBACCO, UN 10/18/2016 YASMINE CHAVEZ N Ot M81.0 AGE-RELATED OSTEOPOROSIS W/O CURRENT PAT 10/18/2016 YASMINE CHAVEZ N Ot N18.3 CHRONIC KIDNEY DISEASE, STAGE 3 (MODERAT 10/18/2016 KATHY BOBLEMUEL N Ot Z08 ENCNTR FOR FOLLOW-UP EXAM AFTER TRTMT FO 10/18/2016 YASMINE CHAVEZ N Ot Z79.82 LONGTERM (CURRENT) USE OF ASPIRIN 10/18/2016 YASMINE CHAVEZ Ot Z85.118 PERSONAL HISTORY OF MALIGNANT NEOPLASM O 10/18/2016 YASMINE CHAVEZ Ot Z92.21 PERSONAL HISTORY OF ANTINEOPLASTIC CHEMO 10/18/2016 YASMINE CHAVEZ Ot Z92.3 PERSONAL HISTORY OF IRRADIATION 10/19/2016 YASMINE CHAVEZ Ot F17.220 NICOTINE DEPENDENCE, CHEWING TOBACCO, UN 10/19/2016 YASMINE CHAVEZ Ot M81.0 AGE-RELATED OSTEOPOROSIS W/O CURRENT PAT 10/19/2016 YASMINE CHAVEZ Ot N18.3 CHRONIC KIDNEY DISEASE, STAGE 3 (MODERAT 10/19/2016 YASMINE CHAVEZ Ot Z08 ENCNTR FOR FOLLOW-UP EXAM AFTER TRTMT FO 10/19/2016 YASMINE CHAVEZ Ot Z79.82 LONGTERM (CURRENT) USE OF ASPIRIN 10/19/2016 YASMINE CHAVEZ Ot Z85.118 PERSONAL HISTORY OF MALIGNANT NEOPLASM O 10/19/2016 YASMINE CHAVEZ Ot Z92.21 PERSONAL HISTORY OF ANTINEOPLASTIC CHEMO 10/19/2016 YASMINE CHAVEZ Ot Z92.3 PERSONAL HISTORY OF IRRADIATION 11/15/2016 Ot 785.6 ENLARGEMENT LYMPH NODES 11/15/2016 Ot 733.00 OSTEOPOROSIS NOS 11/15/2016 Ot V10.11 HX- BRONCHOGENIC MALIGNAN 11/15/2016 Ot V58.66 LONG-TERM ( CURRENT) USE OF ASPIRIN 11/15/2016 Ot V58.69 OTH MED,LT, CURRENT USE 11/15/2016 Ot V67.1 RADIOTHERAPY FOLLOW-UP 11/15/2016 Ot V67.2 CHEMOTHERAPY FOLLOW-UP 11/15/2016 Ot 162.9 MAL ALEXANDRO BRONCH/LUNG NOS 11/15/2016 Ot V10.11 HX- BRONCHOGENIC MALIGNAN 11/15/2016 Ot V58.81 FIT/ADJ VASCULAR CATHETER 11/15/2016 Ot 162.9 MAL ALEXANDRO BRONCH/LUNG NOS 11/15/2016 Ot 162.9 MAL ALEXANDRO BRONCH/LUNG NOS 11/15/2016 Ot 733.00 OSTEOPOROSIS NOS 11/15/2016 Ot V82.81 SCREENING FOR OSTEOPOROSIS 11/15/2016 KAM MCKEON RACKING MACHINE OPERATOR Ot 733.00 OSTEOPOROSIS NOS 11/15/2016 KAM MCKEON RACKING MACHINE OPERATOR Ot V10.11 HX-BRONCHOGENIC MALIGNAN 11/15/2016 KAM MCKEON RACKING MACHINE OPERATOR Ot V58.66 LONG-TERM (CURRENT) USE OF ASPIRIN 11/15/2016 KAM MCKEON RACKING MACHINE OPERATOR Ot V58.69 OTH MED,LT,CURRENT USE 11/15/2016 KAM MCKEON RACKING MACHINE OPERATOR Ot V67.1 RADIOTHERAPY FOLLOW-UP 11/15/2016 KAM MCKEON RACKING MACHINE OPERATOR Ot V67.2 CHEMOTHERAPY FOLLOW-UP 11/15/2016 KAM MCKEON RACKING MACHINE OPERATOR Ot 162.9 MAL ALEXANDRO BRONCH/LUNG NOS 11/15/2016 KAM MCKEON RACKING MACHINE OPERATOR Ot 562.10 DIVERTICULOSIS COLON (W/O MENT OF HEMORR 11/15/2016 KAM MCKEON RACKING MACHINE OPERATOR Ot 285.9 ANEMIA NOS 11/15/2016 KAM MCKEON RACKING MACHINE OPERATOR Ot 585.3 CHRONIC KIDNEY DISEASE, STAGE III (MODER 11/15/2016 KAM MCKEON RACKING MACHINE OPERATOR Ot 733.00 OSTEOPOROSIS NOS 11/15/2016 KAM MCKEON RACKING MACHINE OPERATOR Ot V10.11 HX-BRONCHOGENIC MALIGNAN 11/15/2016 KAM MCKEON RACKING MACHINE OPERATOR Ot V58.66 LONG-TERM (CURRENT) USE OF ASPIRIN 11/15/2016 KAM MCKEON Ot V58.69 OTH MED,LT,CURRENT USE 11/15/2016 KAM MCKEON RACKING MACHINE OPERATOR Ot V67.1 RADIOTHERAPY FOLLOW-UP 11/15/2016 KAM MCKEON RACKING MACHINE OPERATOR Ot V67.2 CHEMOTHERAPY FOLLOW-UP 11/15/2016 KAM MCKEON RACKING MACHINE OPERATOR Ot 285.9 ANEMIA NOS 11/15/2016 KAM MCKEON RACKING MACHINE OPERATOR Ot 585.3 CHRONIC KIDNEY DISEASE, STAGE III (MODER 11/15/2016 KAM MCKEON RACKING MACHINE OPERATOR Ot 733.00 OSTEOPOROSIS NOS 11/15/2016 KAM MCKEON RACKING MACHINE OPERATOR Ot V10.11 HX-BRONCHOGENIC MALIGNAN 11/15/2016 KAM MCKEON RACKING MACHINE OPERATOR Ot V58.66 LONG-TERM (CURRENT) USE OF ASPIRIN 11/15/2016 KAM MCKEON RACKING MACHINE OPERATOR Ot V58.69 OTH MED,LT,CURRENT USE 11/15/2016 KAM MCKEON RACKING MACHINE OPERATOR Ot V67.1 RADIOTHERAPY FOLLOW-UP 11/15/2016 LINDA KAM Oleary RACKING MACHINE OPERATOR Ot V67.2 CHEMOTHERAPY FOLLOW-UP 11/15/2016 MCKEON KAM Oleary RACKING MACHINE OPERATOR Ot F17.220 NICOTINE DEPENDENCE, CHEWING TOBACCO, UN 11/15/2016 MCKEON KAM Oleary RACKING MACHINE OPERATOR Ot M81.0 AGE-RELATED OSTEOPOROSIS W/O CURRENT PAT 11/15/2016 MCKEON KAM Oleary RACKING MACHINE OPERATOR Ot Z08 ENCNTR FOR FOLLOW-UP EXAM AFTER TRTMT FO 11/15/2016 KANNAN MCKEONSUMAN Oleary RACKING MACHINE OPERATOR Ot Z79.899 OTHER SUPERVISOR FINISHING DEPARTMENT (CURRENT) DRUG THERAPY 11/15/2016 LINDA KAM Mamta RACKING MACHINE OPERATOR Ot Z85.118 PERSONAL HISTORY OF MALIGNANT NEOPLASM O 11/15/2016 KANNAN MKCEONSUMAN Mamta RACKING MACHINE OPERATOR Ot Z92.21 PERSONAL HISTORY OF ANTINEOPLASTIC CHEMO 11/15/2016 KANNAN MCKEONSUMAN Mamta RACKING MACHINE OPERATOR Ot Z92.3 PERSONAL HISTORY OF IRRADIATION 11/15/2016 KANNAN MCKEONSUMAN Mamta RACKING MACHINE OPERATOR Ot C34.11 MALIGNANT NEOPLASM OF UPPER LOBE, RIGHT 11/15/2016 KANNAN MCKEONSUMAN Mamta EASLEYP Ot R91.8 OTHER NONSPECIFIC ABNORMAL FINDING OF AMIE 11/15/2016 YASMINE CHAVEZ Ot F17.220 NICOTINE DEPENDENCE, CHEWING TOBACCO, UN 11/15/2016 YASMINE CHAVEZ Ot M81.0 AGE-RELATED OSTEOPOROSIS W/O CURRENT PAT 11/15/2016 YASMINE CHAVEZ N Ot N18.3 CHRONIC KIDNEY DISEASE, STAGE 3 (MODERAT 11/15/2016 YASMINE CHAVEZ Ot Z08 ENCNTR FOR FOLLOW-UP EXAM AFTER TRTMT FO 11/15/2016 YASMINE CHAVEZ Ot Z79.82 LONGTERM (CURRENT) USE OF ASPIRIN 11/15/2016 YASMINE CHAVEZ N Ot Z85.118 PERSONAL HISTORY OF MALIGNANT NEOPLASM O 11/15/2016 YASMINE CHAVEZ N Ot Z92.21 PERSONAL HISTORY OF ANTINEOPLASTIC CHEMO 11/15/2016 YASMINE CHAVEZ N Ot Z92.3 PERSONAL HISTORY OF IRRADIATION 11/15/2016 YASMINE CHAVEZ N Ot F17.220 NICOTINE DEPENDENCE, CHEWING TOBACCO, UN 11/15/2016 YASMINE CHAVEZ N Ot M81.0 AGE-RELATED OSTEOPOROSIS W/O CURRENT PAT 11/15/2016 YASMINE CHAVEZ N Ot N18.3 CHRONIC KIDNEY DISEASE, STAGE 3 (MODERAT 11/15/2016 YASMINE CHAVEZ N Ot Z08 ENCNTR FOR FOLLOW-UP EXAM AFTER TRTMT FO 11/15/2016 YASMINE CHAVEZ N Ot 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 11/15/2016 YASMINE CHAVEZ N Ot Z85.118 PERSONAL HISTORY OF MALIGNANT NEOPLASM O 11/15/2016 YASMINE CHAVEZ N Ot Z92.21 PERSONAL HISTORY OF ANTINEOPLASTIC CHEMO 11/15/2016 YASMINE CHAVEZ N Ot Z92.3 PERSONAL HISTORY OF IRRADIATION 11/16/2016 KAM MCKEON RACKING MACHINE OPERATOR Ot C34.11 MALIGNANT NEOPLASM OF UPPER LOBE, RIGHT 12/20/2016 KAM MCKEON RACKING MACHINE OPERATOR Ot C34.11 MALIGNANT NEOPLASM OF UPPER LOBE, RIGHT 12/21/2016 YASMINE CHAVEZ N Ot F17.220 NICOTINE DEPENDENCE, CHEWING TOBACCO, UN 12/21/2016 YASMINE CHAVEZ N Ot M81.0 AGE-RELATED OSTEOPOROSIS W/O CURRENT PAT 12/21/2016 YASMINE CHAVEZ N Ot N18.3 CHRONIC KIDNEY DISEASE, STAGE 3 (MODERAT 12/21/2016 YASMINE CHAVEZ N Ot Z08 ENCNTR FOR FOLLOW-UP EXAM AFTER TRTMT FO 12/21/2016 YASMINE CHAVEZ N Ot Z79.82 LONGTERM (CURRENT) USE OF ASPIRIN 12/21/2016 YASMINE CHAEVZ N Ot Z85.118 PERSONAL HISTORY OF MALIGNANT NEOPLASM O 12/21/2016 YASMINE CHAVEZ N Ot Z92.21 PERSONAL HISTORY OF ANTINEOPLASTIC CHEMO 12/21/2016 YASMINE CHAVEZ N Ot Z92.3 PERSONAL HISTORY OF IRRADIATION 01/09/2017 YASMINE CHAVEZ N Ot F17.220 NICOTINE DEPENDENCE, CHEWING TOBACCO, UN 01/09/2017 YASMINE CHAVEZ N Ot M81.0 AGE-RELATED OSTEOPOROSIS W/O CURRENT PAT 01/09/2017 YASMINE CHAVEZ N Ot N18.3 CHRONIC KIDNEY DISEASE, STAGE 3 (MODERAT 01/09/2017 YASMINE CHAVEZ N Ot Z08 ENCNTR FOR FOLLOW-UP EXAM AFTER TRTMT FO 01/09/2017 YASMINE CHAVEZ N Ot Z79.82 LONGTERM (CURRENT) USE OF ASPIRIN 01/09/2017 KATHY YASMINE N Ot Z85.118 PERSONAL HISTORY OF MALIGNANT NEOPLASM O 01/09/2017 YASMINE CHAVEZ N Ot Z92.21 PERSONAL HISTORY OF ANTINEOPLASTIC CHEMO 01/09/2017 YASMINE CHAVEZ N Ot Z92.3 PERSONAL HISTORY OF IRRADIATION 02/13/2017 YASMINE CHAVEZ N Ot F17.220 NICOTINE DEPENDENCE, CHEWING TOBACCO, UN 02/13/2017 YASMINE CHAVEZ N Ot M81.0 AGE-RELATED OSTEOPOROSIS W/O CURRENT PAT 02/13/2017 YASMINE CHAVEZ N Ot N18.3 CHRONIC KIDNEY DISEASE, STAGE 3 (MODERAT 02/13/2017 YASMINE CHAVEZ N Ot Z08 ENCNTR FOR FOLLOW-UP EXAM AFTER TRTMT FO 02/13/2017 YASMINE CHAVEZ N Ot Z79.82 LONGTERM (CURRENT) USE OF ASPIRIN 02/13/2017 YASMINE CHAVEZ N Ot Z85.118 PERSONAL HISTORY OF MALIGNANT NEOPLASM O 02/13/2017 YASMINE CHAVEZ N Ot Z92.21 PERSONAL HISTORY OF ANTINEOPLASTIC CHEMO 02/13/2017 YASMINE CHAVEZ N Ot Z92.3 PERSONAL HISTORY OF IRRADIATION 07/27/2017 YASMINE CHAVEZ N Ot F17.220 NICOTINE DEPENDENCE, CHEWING TOBACCO, UN 07/27/2017 YASMINE CHAVEZ N Ot M81.0 AGE-RELATED OSTEOPOROSIS W/O CURRENT PAT 07/27/2017 YASMINE CHAVEZ N Ot N18.3 CHRONIC KIDNEY DISEASE, STAGE 3 (MODERAT 07/27/2017 YASMINE CHAVEZ N Ot Z08 ENCNTR FOR FOLLOW-UP EXAM AFTER TRTMT FO 07/27/2017 YASMINE CHAVEZ N Ot Z79.82 LONGTERM (CURRENT) USE OF ASPIRIN 07/27/2017 YASMINE CHAVEZ N Ot Z85.118 PERSONAL HISTORY OF MALIGNANT NEOPLASM O 07/27/2017 YASMINE CHAVEZ N Ot Z92.21 PERSONAL HISTORY OF ANTINEOPLASTIC CHEMO 07/27/2017 YASMINE CHAVEZ N Ot Z92.3 PERSONAL HISTORY OF IRRADIATION 08/07/2017 YASMINE CHAVEZ N Ot F17.220 NICOTINE DEPENDENCE, CHEWING TOBACCO, UN 08/07/2017 YASMINE CHAVEZ N Ot M81.0 AGE-RELATED OSTEOPOROSIS W/O CURRENT PAT 08/07/2017 YASMINE CHAVEZ N Ot N18.3 CHRONIC KIDNEY DISEASE, STAGE 3 (MODERAT 08/07/2017 YASMINE CHAVEZ Ot Z08 ENCNTR FOR FOLLOW-UP EXAM AFTER TRTMT FO 08/07/2017 YASMINE CHAVEZ Ot Z79.82 LONGTERM (CURRENT) USE OF ASPIRIN 08/07/2017 YASMINE CHAVEZ Ot Z85.118 PERSONAL HISTORY OF MALIGNANT NEOPLASM O 08/07/2017 YASMINE CHAVEZ Ot Z92.21 PERSONAL HISTORY OF ANTINEOPLASTIC CHEMO 08/07/2017 YASMINE CHAVEZ Ot Z92.3 PERSONAL HISTORY OF IRRADIATION 01/15/2018 Ot 162.9 MAL ALEXANDRO BRONCH/LUNG NOS 01/15/2018 Ot 733.00 OSTEOPOROSIS NOS 01/15/2018 Ot V82.81 SCREENING FOR OSTEOPOROSIS 01/15/2018 KAM MCKEON S RACKING MACHINE OPERATOR Ot 733.00 OSTEOPOROSIS NOS 01/15/2018 KAM MCKEON S RACKING MACHINE OPERATOR Ot V10.11 HX-BRONCHOGENIC MALIGNAN 01/15/2018 KAM MCKEON S RACKING MACHINE OPERATOR Ot V58.66 LONG-TERM (CURRENT) USE OF ASPIRIN 01/15/2018 KAM MCKEON S RACKING MACHINE OPERATOR Ot V58.69 OTH MED,LT,CURRENT USE 01/15/2018 KAM MCKEON S RACKING MACHINE OPERATOR Ot V67.1 RADIOTHERAPY FOLLOW-UP 01/15/2018 KAM MCKEON S RACKING MACHINE OPERATOR Ot V67.2 CHEMOTHERAPY FOLLOW-UP 01/15/2018 KAM MCKEON S RACKING MACHINE OPERATOR Ot 162.9 MAL ALEXANDRO BRONCH/LUNG NOS 01/15/2018 KAM MCKEON S RACKING MACHINE OPERATOR Ot 562.10 DIVERTICULOSIS COLON (W/O MENT OF HEMORR 01/15/2018 KAM MCKEON S RACKING MACHINE OPERATOR Ot 285.9 ANEMIA NOS 01/15/2018 KAM MCKEON S RACKING MACHINE OPERATOR Ot 585.3 CHRONIC KIDNEY DISEASE, STAGE III (MODER 01/15/2018 MCKEONKAM S RACKING MACHINE OPERATOR Ot 733.00 OSTEOPOROSIS NOS 01/15/2018 KANNAN MCKEONAH S RACKING MACHINE OPERATOR Ot V10.11 HX-BRONCHOGENIC MALIGNAN 01/15/2018 MCKEONKAM S RACKING MACHINE OPERATOR Ot V58.66 LONG-TERM (CURRENT) USE OF ASPIRIN 01/15/2018 MCKEONKAM S RACKING MACHINE OPERATOR Ot V58.69 OTH MED,LT,CURRENT USE 01/15/2018 KAM MCKEON S RACKING MACHINE OPERATOR Ot V67.1 RADIOTHERAPY FOLLOW-UP 01/15/2018 KAM MCKEON RACKING MACHINE OPERATOR Ot V67.2 CHEMOTHERAPY FOLLOW-UP 01/15/2018 MCKEON KAM Oleary RACKING MACHINE OPERATOR Ot 285.9 ANEMIA NOS 01/15/2018 KAM MCKEON RACKING MACHINE OPERATOR Ot 585.3 CHRONIC KIDNEY DISEASE, STAGE III (MODER 01/15/2018 MCKEONKAM Oleary RACKING MACHINE OPERATOR Ot 733.00 OSTEOPOROSIS NOS 01/15/2018 LINDA KAM Oleary RACKING MACHINE OPERATOR Ot V10.11 HX-BRONCHOGENIC MALIGNAN 01/15/2018 MCKEONKAM Oleary RACKING MACHINE OPERATOR Ot V58.66 LONG-TERM (CURRENT) USE OF ASPIRIN 01/15/2018 LINDA KAM Oleary RACKING MACHINE OPERATOR Ot V58.69 OTH MED,LT,CURRENT USE 01/15/2018 KAM MCKEON RACKING MACHINE OPERATOR Ot V67.1 RADIOTHERAPY FOLLOW-UP 01/15/2018 LINDA KAM Oleary RACKING MACHINE OPERATOR Ot V67.2 CHEMOTHERAPY FOLLOW-UP 01/15/2018 LINDA KAM Oleary RACKING MACHINE OPERATOR Ot F17.220 NICOTINE DEPENDENCE, CHEWING TOBACCO, UN 01/15/2018 MCKEON KAM Oleary RACKING MACHINE OPERATOR Ot M81.0 AGE-RELATED OSTEOPOROSIS W/O CURRENT PAT 01/15/2018 LINDA KAM Oleary RACKING MACHINE OPERATOR Ot Z08 ENCNTR FOR FOLLOW-UP EXAM AFTER TRTMT FO 01/15/2018 MCKEON KAM Oleary RACKING MACHINE OPERATOR Ot Z79.899 OTHER LONGTERM (CURRENT) DRUG THERAPY 01/15/2018 LINDA KAM Oleary RACKING MACHINE OPERATOR Ot Z85.118 PERSONAL HISTORY OF MALIGNANT NEOPLASM O 01/15/2018 LINDA KAM Oleary RACKING MACHINE OPERATOR Ot Z92.21 PERSONAL HISTORY OF ANTINEOPLASTIC CHEMO 01/15/2018 LINDA KAM Oleary RACKING MACHINE OPERATOR Ot Z92.3 PERSONAL HISTORY OF IRRADIATION 01/15/2018 LINDA KAM Oleary RACKING MACHINE OPERATOR Ot C34.11 MALIGNANT NEOPLASM OF UPPER LOBE, RIGHT 01/15/2018 LINDA KAM Oleary RACKING MACHINE OPERATOR Ot R91.8 OTHER NONSPECIFIC ABNORMAL FINDING OF AMIE 01/15/2018 LINDA KAM Oleary RACKING MACHINE OPERATOR Ot C34.11 MALIGNANT NEOPLASM OF UPPER LOBE, RIGHT 01/16/2018 YASMINE CHAVEZ Ot F17.220 NICOTINE DEPENDENCE, CHEWING TOBACCO, UN 01/16/2018 KATHY, BOBAN N Ot M81.0 AGE-RELATED OSTEOPOROSIS W/O CURRENT PAT 01/16/2018 KATHYANN MARIE VERDINAN N Ot N18.3 CHRONIC KIDNEY DISEASE, STAGE 3 (MODERAT 01/16/2018 KATHYANN MARIE VERDINAN N Ot Z08 ENCNTR FOR FOLLOW-UP EXAM AFTER TRTMT FO 01/16/2018 ANN MARIE CHAVEZAN N Ot 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 01/16/2018 KATHY, BOBAN N Ot Z85.118 PERSONAL HISTORY OF MALIGNANT NEOPLASM O 01/16/2018 KATHY, BOBAN N Ot Z92.21 PERSONAL HISTORY OF ANTINEOPLASTIC CHEMO 01/16/2018 KATHY, BOBAN N Ot Z92.3 PERSONAL HISTORY OF IRRADIATION 01/16/2018 KATHY, BOBAN N Ot F17.220 NICOTINE DEPENDENCE, CHEWING TOBACCO, UN 01/16/2018 KATHY BOBLEMUEL N Ot M81.0 AGE-RELATED OSTEOPOROSIS W/O CURRENT PAT 01/16/2018 KATHY BOBAN N Ot N18.3 CHRONIC KIDNEY DISEASE, STAGE 3 (MODERAT 01/16/2018 KATHY, BOBAN N Ot Z08 ENCNTR FOR FOLLOW-UP EXAM AFTER TRTMT FO 01/16/2018 KATHY BOBAN N Ot 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 01/16/2018 KATHY, BOBAN N Ot Z85.118 PERSONAL HISTORY OF MALIGNANT NEOPLASM O 01/16/2018 KATHY, BOBAN N Ot Z92.21 PERSONAL HISTORY OF ANTINEOPLASTIC CHEMO 01/16/2018 KATHY, BOBAN N Ot Z92.3 PERSONAL HISTORY OF IRRADIATION 01/21/2018 YASMINE CHAVEZ N Ot F17.220 NICOTINE DEPENDENCE, CHEWING TOBACCO, UN 01/21/2018 KATHY BOBLEMUEL N Ot M81.0 AGE-RELATED OSTEOPOROSIS W/O CURRENT PAT 01/21/2018 KATHY, BOBAN N Ot N18.3 CHRONIC KIDNEY DISEASE, STAGE 3 (MODERAT 01/21/2018 KATHY, BOBAN N Ot Z08 ENCNTR FOR FOLLOW-UP EXAM AFTER TRTMT FO 01/21/2018 KATHY BOBAN N Ot 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 01/21/2018 KATHY, BOBAN N Ot Z85.118 PERSONAL HISTORY OF MALIGNANT NEOPLASM O 01/21/2018 KATHY, BOBAN N Ot Z92.21 PERSONAL HISTORY OF ANTINEOPLASTIC CHEMO 01/21/2018 YASMINE CHAVEZ Ot Z92.3 PERSONAL HISTORY OF IRRADIATION 02/06/2018 YASMINE CHAVEZ Ot F17.220 NICOTINE DEPENDENCE, CHEWING TOBACCO, UN 02/06/2018 YASMINE CHAVEZ Ot M81.0 AGE-RELATED OSTEOPOROSIS W/O CURRENT PAT 02/06/2018 YASMINE CHAVEZ Ot N18.3 CHRONIC KIDNEY DISEASE, STAGE 3 (MODERAT 02/06/2018 YASMINE CHAVEZ Ot Z08 ENCNTR FOR FOLLOW-UP EXAM AFTER TRTMT FO 02/06/2018 YASMINE CHAVEZ Ot Z79.82 LONGTERM (CURRENT) USE OF ASPIRIN 02/06/2018 YASMINE CHAVEZ Ot Z85.118 PERSONAL HISTORY OF MALIGNANT NEOPLASM O 02/06/2018 YASMINE CHAVEZ Ot Z92.21 PERSONAL HISTORY OF ANTINEOPLASTIC CHEMO 02/06/2018 YASMINE CHAVEZ Ot Z92.3 PERSONAL HISTORY OF IRRADIATION Procedures There is no data. Results There is no data. Encounters ACCT No. Visit Date/Time Discharge Status Pt. Type Provider Facility Loc./Unit Complaint [id number] 03/28/2018 12:43:00 03/28/2018 23:59:59 CLS Outpatient YASMINE CHAVEZ [facility] ONC [id number] 01/15/2018 10:00:00 01/15/2018 23:59:59 CLS Outpatient YASMINE CHAVEZ [facility] ONC [id number] 07/31/2017 10:09:00 08/07/2017 09:45:00 DIS Outpatient YASMINE CHAVEZ [facility] ONC [id number] 07/31/2017 13:29:00 07/31/2017 23:59:59 CLS Preadmit KAM MCKEON [facility] RAD LUNG CA C34.11 [id number] 11/29/2016 10:33:00 02/13/2017 00:01:00 DIS Outpatient YASMINE CHAVEZ [facility] ONC [id number] 11/15/2016 11:51:00 11/15/2016 23:59:59 CLS Outpatient KAM MCKEON [facility] RAD LUNG CANCER [id number] 07/14/2016 13:41:00 10/12/2016 00:01:00 DIS Outpatient YASMINE CHAVEZ [place] [facility] ONC [id number] 07/12/2016 09:34:00 07/12/2016 23:59:59 CLS Outpatient MCKEONKANNANAH S RACKING MACHINE OPERATOR [facility] RAD LUNG CANCER [id number] 03/17/2016 12:56:00 06/15/2016 00:01:00 DIS Outpatient YASMINE CHAVEZ [place] [facility] ONC [id number] 09/15/2015 13:02:00 09/15/2015 23:59:59 CLS Outpatient KAM MCKEON S RACKING MACHINE OPERATOR [facility] ONC [id number] 03/19/2015 10:08:00 06/17/2015 00:01:00 DIS Outpatient YASMINE CHAVEZ [place] [facility] ONC [id number] 09/17/2014 09:36:00 09/17/2014 23:59:59 CLS Outpatient KAM MCKEON S RACKING MACHINE OPERATOR [facility] ONC [id number] 03/12/2014 10:31:00 06/10/2014 00:01:00 DIS Outpatient YASMINE CHAVEZ [place] [facility] ONC [id number] 11/21/2013 09:57:00 02/19/2014 00:01:00 DIS Outpatient YASMINE CHAVEZ [place] [facility] ONC [id number] 10/31/2013 12:44:00 10/31/2013 23:59:59 CLS Outpatient KAM MCKEON S RACKING MACHINE OPERATOR [facility] ONC [id number] 10/15/2013 09:54:00 10/15/2013 23:59:59 CLS Outpatient MCKEONKAM Oleary S RACKING MACHINE OPERATOR [facility] RAD LUNG CA [id number] 04/22/2013 11:58:00 04/22/2013 23:59:59 CLS Outpatient MCKEON, HILAH S RACKING MACHINE OPERATOR [facility] ONC OV [id number] 10/22/2012 13:14:00 Document Registration [id number] 10/12/2012 09:54:00 Document Registration [id number] 07/05/2012 13:22:00 Document Registration [id number] 06/26/2012 10:11:00 Document Registration [id number] 03/01/2012 09:34:00 Document Registration [id number] 10/27/2011 09:44:00 Document Registration [id number] 10/18/2011 10:21:00 Document Registration [id number] 09/13/2011 15:02:00 Document Registration [id number] 07/25/2011 08:54:00 Document Registration [id number] 06/02/2011 09:40:00 Document Registration [id number] 05/05/2011 10:43:00 Document Registration [id number] 04/28/2011 10:07:00 Document Registration [id number] 04/14/2011 12:32:00 Document Registration
[2018-04-04] MEDS ORDERED: NS IV 1000 ML 0 ML ONE (07:48)
[2018-04-04] MEDS ORDERED: HEParin 1000 UNIT/ML (10ML VIAL) FOR BOLUS ONE ×2 (07:48→08:02)
[2018-04-04] MEDS ORDERED: LIDOCAINE 1% INJ 20 ML 20 ML VIAL ONE ×2 (07:48→08:02)
[2018-04-04] MEDS ORDERED: NS IV 1000 ML 1,000 ML IV SCH ×2 (08:00→08:55)
[2018-04-04] MEDS ORDERED: NS IV 1000 ML 3,000 ML ONE (08:01)
[2018-04-04] MEDS ORDERED: MIDAZOLAM 5 MG/5 ML (VERSED) VIAL ONE (08:02)
[2018-04-04] MEDS ORDERED: fentaNYL INJECTION 100 MCG/2 ML AMP ONE (08:02)
--- NOTE | 2018-04-04 08:03 | Cardiology History & Physical ---
HPI-Cardiology Cardiology Consultation Date of Consultation 04/04/18 Date of Admission Time Seen by Provider: 07:58 Indication: Shortness of breath HPI 72 years old gentleman with history of hypertension, squamous cell lung cancer, received chemotherapy since 2007 and has been in remission. Patient was working in his backyard when he started having diaphoresis and shortness of breath to the point that he went to the emergency room for evaluation. Patient was noted to have supraventricular tachycardia, improved after treatment, continue to have EKG changes with T-wave inversion in the anterior leads. He denied any chest pain. Feeling better but he had elevated troponin level. He denied any syncope or near syncopal episode. Denied any previous cardiac issues. I discussed with him the need for urgent cardiac catheterization and patient requested to wait until later today and possibly tomorrow until he visit with his family PMH-Cardiology Immunizations Up To Date Date of Pneumonia Vaccine: Nov 13, 2013 Other PMHx Past medical history is discussed below Social History Patient Social History Marrital Status: Employed/Student: retired Smoking: Former smoker Recent Foreign Travel: No Contact w/other who traveled: No Recent Infectious Disease Expo: No Family Hx Other Noncontributory to his current condition ROS-Cardiology Review of Systems General: No Chills, No Night Sweats; Fatigue, Malaise; No Appetite HEENT: No Head Aches, No Visual Changes, No Eye Pain, No Ear Pain, No Dysphasia , No Sinus Congestion, No Post Nasal Drip, No Sore Throat Pulmonary: Dyspnea; No Cough, No Pleuritic Chest Pain Cardiovascular: Palpitations; No: Chest Pain, Orthopnea, Paroxysmal Noc. Dyspnea, Edema, Lt Headedness Gastrointestinal: No: Nausea, Vomiting, Abdominal Pain, Diarrhea, Constipation , Melena, Hematochezia Genitourinary: No Dysuria, No Frequency, No Incontinence, No Hematuria, No Retention Musculoskeletal: No: neck pain, shoulder pain, arm pain, back pain, hand pain, leg pain, foot pain Neurological: No: Weakness, Numbness, Incoordination, Change in speech, Confusion, Seizures Home Medications & Allergies Allergies: Coded Allergies: No Allergy Information Available (Unverified , 11/15/16) Home Medication List Reviewed: Yes Exam-Cardiology Vital Signs Vital Signs Date Time Temp Pulse Resp B/P (MAP) Pulse Ox O2 Delivery O2 Flow Rate FiO2 04/04/18 15:03 86 22 100 Nasal Cannula 3.00 04/04/18 14:00 132/86 (101) 04/04/18 12:00 99.1 Exam General Appearance: Alert, Oriented X3, Cooperative, No Acute Distress HEENT: Atraumatic, PERRLA Respiratory: Clear to Auscultation, Normal Air Movement Cardiovascular: Regular Rate, Normal S1, Normal S2, No Murmurs, Other (S3 gallop is present) Abdominal: Normal Bowel Sounds, Soft, No Tenderness, No Hepatosplenomegaly, No Masses Extremities: No Clubbing, No Cyanosis, No Edema, Normal Pulses, No Tenderness/ Swelling Skin: No Rashes, No Breakdown, No Significant Lesion Neuro: Normal Gait, Normal Speech, Strength at 5/5 X4 Ext, Normal Tone, Sensation Intact Psych/Mental Status: Mental Status NL, Mood NL Results Labs Labs Laboratory Tests 04/04/18 08:15: White Blood Count 9.0, Red Blood Count 4.23L, Hemoglobin 12.7L, Hematocrit 39L, Mean Corpuscular Volume 92, Mean Corpuscular Hemoglobin 30, Mean Corpuscular Hemoglobin Concent 33, Red Cell Distribution Width 14.9H, Platelet Count 147, Mean Platelet Volume 10.4, Prothrombin Time 14.0, INR Comment 1.1, Activated Partial Thromboplast Time 35, Sodium Level 144, Potassium Level 4.1, Chloride Level 109H, Carbon Dioxide Level 25, Anion Gap 10, Blood Urea Nitrogen 18, Creatinine 0.94, Estimat Glomerular Filtration Rate > 60, BUN/Creatinine Ratio 19, Glucose Level 92, Calcium Level 9.3, Troponin I 1.30*H Labs were reviewed from the [facility] A/P-Cardiology Admission Diagnosis Non-ST elevation myocardial infarction Coronary artery disease SVT Hypertension COPD Lung cancer Chronic renal insufficiency Admission Status: Observation Assessment/Plan Non-ST elevation myocardial infarction, patient had EKG changes with mild elevation in troponin level. Discussed with the patient cardiac catheterization and the need for urgent cardiac catheterization patient requested to wait and visit with his family, later he agreed on proceeding with the procedure, I will proceed with the procedure urgently. Acute renal insufficiency, started on IV fluid and we'll monitor his renal function SVT, converted to sinus rhythm prior to treatment. Continue to monitor Hypertension, has been on metoprolol previously. Planning to restart medication monitor blood pressure Shortness of breath, COPD, has been maintained on prednisone. Restart medication in addition to stress dose of steroids Hyperglycemia, probably secondary to steroids, hemoglobin A1c was 5 in the other institution Stage II a squamous cell lung cancer diagnosed in 2007 and treated. Has been in remission and followed by Dr. Cline Addendum on April 04, 2018 at 9:09 a.m. Patient was taken to the cardiac catheterization laboratory which showed total occlusion of the right coronary artery large dominant artery and severe mid LAD filling the right by collaterals with preserved left ventricular systolic function, patient will need evaluation for CABG. Arrangement to transfer to [facility] was made. I contacted Dr. Sheridan Final diagnosis Non-ST elevation myocardial infarction Coronary artery disease Hypertension COPD Clinical Quality Measures DVT/VTE Risk/Contraindication: Risk Factor Score Per Nursin RFS Level Per Nursing on Admit: 4+=Very High DMITRI ESPITIA MD April 04, 2018 08:03
[2018-04-04 08:23] LABS: HEMOGLOBIN 12.7 G/DL (13.3-17.7); MEAN PLATELET VOLUME 10.4 FL (7.4-10.4); RED BLOOD COUNT 4.23 10^6/uL (4.35-5.85); RED CELL DISTRIBUTION WIDTH 14.9 % (10.0-14.5)
[2018-04-04 08:34] LABS: INR 1.1 (0.8-1.4)
[2018-04-04 08:40] LABS: BUN/CREATININE RATIO 19; CALCIUM 9.3 MG/DL (8.5-10.1); CARBON DIOXIDE 25 MMOL/L (21-32); CHLORIDE 109 MMOL/L (98-107); CREATININE SERUM 0.94 MG/DL (0.60-1.30); GFR ESTIMATED > 60; GLUCOSE 92 MG/DL (70-105); POTASSIUM 4.1 MMOL/L (3.6-5.0); SODIUM 144 MMOL/L (135-145)
[2018-04-04] MEDS ORDERED: ADENOSINE 3 MG/1 ML (ADENOSCAN) 30ML VIAL IV ONE (08:43)
--- NOTE | 2018-04-04 08:54 | Cardiac Procedure Note-CS/ASA ---
Pre-Procedure Note Pre-Op Procedure Note H&P Reviewed The H&P was reviewed, patient examined and no changes noted. Date H&P Reviewed: April 04, 2018 Time H&P Reviewed: 08:53 Conscious Sedation Pre-Proced Time Reviewed: 08:53 ASA Class: 3 Airway Mallampati Classification: (tangirnaq appropriate class) I. II. III, IV Lungs Heart ASA score ASA 1: a normal healthy patient ASA 2: a patient with a mild systemic disease (mid diabetes, controlled hypertension, obesity x ASA 3: a patient with a severe systemic disease that limits activity (angina , COPD, prior Myocardial infarction) ASA 4: a patient with an incapacitating disease that is a constant threat to life (CHF, renal failure) ASA 5: a moribund patient not expected to survive 24 hrs. (ruptured aneurysm) ASA 6: a declared brain patient whose organs are being harvested. For emergent operations, add the letter E after the classification Grade 3 Sedation Plan: Analgesia, Amnesia, Plan communicated to team members, Discussed options with patient/fam, Discussed risks with patient/fam Note The patient is an appropriate candidate to undergo the planned procedure, sedation, and anesthesia. The patient immediately re-assessed prior to indication. DMITRI ESPITIA MD April 04, 2018 08:54
[2018-04-04] MEDS ORDERED: PATIENT MAY USE OWN MEDS, ALL PO SCH (09:00)
--- NOTE | 2018-04-04 09:04 | Cardiac Cath Report ---
Cardiac Cath Report Physician (s)/Nurse Assessor (s) Physician DMITRI ESPITIA MD Pre-Procedure Diagnosis Pre-Procedure Diagnosis: NSTMI Post-Procedure Note Procedure Start Date: April 04, 2018 Name of Procedure: Left heart catheterization, aortic arch angiogram Findings/Procedure Note PROCEDURE NOTE: After explaining the procedure to the patient, all pros and cons were explained , all questions were answered. The patient signed the consent and then he was placed on the cardiac catheterization laboratory. Groin was prepped SL fashion local anesthesia was used. Sheath placed in the right femoral artery. Carlyn right and left catheter were used to access the coronary system. Pigtail was used to access the left ventricular cavity. Left ventriculogram was done Aortic arch angiogram was done to evaluate the aortic arch due to the curvature of the guiding catheters during the procedure suggesting abnormality in the arch At the end of the procedure the sheath was removed. Closure device was used FINDINGS: Hemodynamics LV 85/14, end-diastolic pressure 14 Aorta 88/51 mean of 61 ANATOMY: Left Main is free of obstructive disease Left Anterior Descending has 6070 percent stenosis at the midportion Left Circumflex has mild disease Right Coronory Artery is totally occluded at the ostium getting filled by collaterals from the left system, large dominant right LV Gram is normal in size with normal contraction. Estimated ejection fraction 60 percent Aorta evaluation done with aortic arch angiogram which showed mild dilatation in the aortic arch, no dissection was noted, origin of the carotid arteries appear to be slightly tortuous with no obstructive disease, the left subclavian artery appeared normal CONCLUSION: 1. Total occlusion of the large dominant right coronary artery receiving collaterals from the left system 2. Severe stenosis at the mid LAD that is giving collaterals to the right system 3. Mild disease in a nondominant circumflex artery 4. Normal left ventricular size and systolic function estimated ejection fraction 60 percent 5. Mildly dilated aortic arch, no dissection, tortuous origin of the carotids with mild calcification DISCUSSION AND RECOMMENDATION: Arrangement to transfer for evaluation for CABG Anesthesia Type: Conscious Sedation Estimated blood loss (mL): 10 ml Contrast Amount: 65 ml Total Radiation Dose: 124 mGy Post-Procedure Diagnosis Post-operative diagnosis: Non-ST elevation myocardial infarction Coronary artery disease Hypertension COPD DMITRI ESPITIA MD April 04, 2018 09:04
[2018-04-04] MEDS ORDERED: FAMOTIDINE 20 MG (PEPCID) TABLET PO PRN (09:30)
[2018-04-04] MEDS ORDERED: ENOXAPARIN 40 MG/0.4 ML (LOVENOX) SYR SQ SCH (09:30)
[2018-04-04] MEDS ORDERED: GUAI600T43 PO (11:10)
[2018-04-04] MEDS ORDERED: ASPI-983 PO (11:10)
[2018-04-04] MEDS ORDERED: OMEP20CA12 PO (11:10)
[2018-04-04] MEDS ORDERED: KRIL1CAP20 PO (11:10)
[2018-04-04] MEDS ORDERED: IPRA3AMP IH (11:10)
[2018-04-04] MEDS ORDERED: PRED10TA22 PO (11:10)
[2018-04-04] MEDS ORDERED: CALC-901 PO (11:10)
[2018-04-04] MEDS ORDERED: ALEN70TA47 PO (11:10)
[2018-04-04] MEDS ORDERED: BENZ-36 PO (11:10)
[2018-04-04] MEDS ORDERED: METOPROLOL 25MG (11:10)
[2018-04-04] MEDS ORDERED: METO-333 PO (11:32)
[2018-04-04] MEDS ORDERED: IPRA4AER IH (11:32)
[2018-04-04] MEDS ORDERED: ATORVASTATIN 80 MG (LIPITOR) TABLET PO SCH (21:00)
[2018-04-05] MEDS ORDERED: ASPIRIN E.C. 325 MG (ECOTRIN) TABLET PO SCH (09:00)
--- OUTSIDE RECORDS SUMMARY | 2018-04-05 12:06 | XMS REPORT | Continuity of Care Document ---
Author Author [facility] Organization [facility] Address Unknown Phone Unavailable Allergies Active Description Code Type Severity Reaction Onset Reported/Identified Relationship to Patient Clinical Status Yes No Allergy Information Available [id number] Drug Allergy Unknown N/A 2016 Medications There is no data. Problems Date Dx Coded Attending Type Code Diagnosis Diagnosed By YASMINE CHAVEZ Ot F17.220 NICOTINE DEPENDENCE, CHEWING TOBACCO, UN YASMINE CHAVEZ Ot M81.0 AGE-RELATED OSTEOPOROSIS W/O CURRENT PAT YASMINE CHAVEZ Ot N18.3 CHRONIC KIDNEY DISEASE, STAGE 3 (MODERAT YASMINE CHAVEZ Ot Z08 ENCNTR FOR FOLLOW-UP EXAM AFTER TRTMT FO YASMINE CHAVEZ Ot Z79.82 HALF-WAY (CURRENT) USE OF ASPIRIN YASMINE CHAVEZ Ot [...] Ot V67.2 CHEMOTHERAPY FOLLOW-UP 11/10/2014 KAM MCKEON [employer] T[employer]ER Ot 285.9 11/10/2014 KAM MCKEON [employer] T[employer]ER Ot 585.3 11/10/2014 KAM MCKEON [employer] T[employer]ER Ot 733.00 11/10/2014 KAM MCKOEN [employer] T[employer]ER Ot V10.11 11/10/2014 KAM MCKEON [employer] T[employer]ER Ot V58.66 11/10/2014 KAM MCKEON [employer] T[employer]ER Ot V58.69 11/10/2014 KAM MCKEON [employer] T[employer]ER Ot V67.1 11/10/2014 KAM MCKEON [employer] T[employer]ER Ot V67.2 03/11/2015 KATHY, BOBAN N Ot [...] Ot V67.2 CHEMOTHERAPY FOLLOW-UP 10/12/2015 KAM MCKEON [employer]ER Ot F17.220 10/12/2015 KAM MCKEON [employer]ER Ot M81.0 10/12/2015 KAM MCKEON [employer]ER Ot Z08 10/12/2015 KAM MCKEON [employer]ER Ot Z79.899 10/12/2015 KAM MCKEON [employer] T[employer]ER Ot Z85.118 10/12/2015 KAM MCKEON [employer]ER Ot Z92.21 10/12/2015 KAM MCKEON [employer] T[employer]ER Ot Z92.3 03/10/2016 YASMINE CHAVEZ N Ot [...] FO 03/18/2016 YASMINE CHAVEZ N Ot Z79.82 FOLDED CLOTH TAPER (CURRENT) USE OF ASPIRIN 03/18/2016 KATHY, BOBAN [...] FO 05/05/2016 YASMINE CHAVEZ N Ot Z79.82 HALF-WAY (CURRENT) USE OF ASPIRIN 05/05/2016 YASMINE CHAVEZ [...] TRTMT FO 06/15/2016 YASMINE CHAVEZ Ot Z79.82 FOLDED CLOTH TAPER (CURRENT) USE OF ASPIRIN 06/15/2016 YASMINE CHAVEZ [...] CHRONIC KIDNEY DISEASE, STAGE 3 (MODERAT 06/16/2016 YSAMINE CHAVEZ Ot Z08 ENCNTR FOR FOLLOW-UP EXAM AFTER TRTMT FO 06/16/2016 YASMINE CHAVEZ Ot Z79.82 FOLDED CLOTH TAPER (CURRENT) USE OF ASPIRIN 06/16/2016 YASMINE CHAVEZ [...] V82.81 SCREENING FOR OSTEOPOROSIS 07/12/2016 KAM MCKEON [employer]ER Ot 733.00 OSTEOPOROSIS NOS 07/12/2016 KAM MCKEON [employer]ER Ot V10.11 HX-BRONCHOGENIC MALIGNAN 07/12/2016 KAM MCKEON [employer] T[employer]ER Ot V58.66 LONG-TERM (CURRENT) USE OF ASPIRIN 07/12/2016 KAM MCKEON [employer]ER Ot V58.69 OTH MED,LT,CURRENT USE 07/12/2016 KAM MCKEON [employer]ER Ot V67.1 RADIOTHERAPY FOLLOW-UP 07/12/2016 KAM MCKEON [employer]ER Ot V67.2 CHEMOTHERAPY FOLLOW-UP 07/12/2016 KAM MCKEON [employer]ER Ot 162.9 MAL ALEXANDRO BRONCH/LUNG NOS 07/12/2016 KAM MCKEON [employer]ER Ot 562.10 DIVERTICULOSIS COLON (W/O MENT OF HEMORR 07/12/2016 KAM MCKEON [employer] Ot 285.9 ANEMIA NOS 07/12/2016 KAM MCKEON [employer] T[employer]ER Ot 585.3 CHRONIC KIDNEY DISEASE, STAGE III (MODER 07/12/2016 KAM MCKEON [employer] T[employer]ER Ot 733.00 OSTEOPOROSIS NOS 07/12/2016 KAM MCKEON [employer] T[employer]ER Ot V10.11 HX-BRONCHOGENIC MALIGNAN 07/12/2016 KAM MCKEON [employer] T[employer]ER Ot V58.66 LONG-TERM (CURRENT) USE OF ASPIRIN 07/12/2016 KAM MCKEON [employer] T[employer]ER Ot V58.69 OTH MED,LT,CURRENT USE 07/12/2016 KAM MCKEON [employer] T[employer]ER Ot V67.1 RADIOTHERAPY FOLLOW-UP 07/12/2016 LINDA KAM Oleary [employer] T[employer]ER Ot V67.2 CHEMOTHERAPY FOLLOW-UP 07/12/2016 MCKEONKAM CL[employer] TENDER Ot 285.9 ANEMIA NOS 07/12/2016 MCKEONKAM Oleary [employer] T[employer]ER Ot 585.3 CHRONIC KIDNEY DISEASE, STAGE III (MODER 07/12/2016 KAM MCKEON [employer]ER Ot 733.00 OSTEOPOROSIS NOS 07/12/2016 LINDA KAM Mamta [employer] T[employer]ER Ot V10.11 HX-BRONCHOGENIC MALIGNAN 07/12/2016 MCKEONKAM Oleary [employer] T[employer]ER Ot V58.66 LONG-TERM (CURRENT) USE OF ASPIRIN 07/12/2016 LINDA KAM Oleary [employer] T[employer]ER Ot V58.69 OTH MED,LT,CURRENT USE 07/12/2016 LINDA KAM Oleary [employer] T[employer]ER Ot V67.1 RADIOTHERAPY FOLLOW-UP 07/12/2016 LINDA KAM Mamta [employer] T[employer]ER Ot V67.2 CHEMOTHERAPY FOLLOW-UP 07/12/2016 KANNAN MCKEONSUMAN Mamta [employer] T[employer]ER Ot F17.220 NICOTINE DEPENDENCE, CHEWING TOBACCO, UN 07/12/2016 LINDA KAM Oleary [employer] T[employer]ER Ot M81.0 AGE-RELATED OSTEOPOROSIS W/O CURRENT PAT 07/12/2016 MCKEON KAM Oleary [employer] T[employer]ER Ot Z08 ENCNTR FOR FOLLOW-UP EXAM AFTER TRTMT FO 07/12/2016 KANNAN MCKEONSUMAN Oleary [employer]ER Ot Z79.899 OTHER HALF-WAY (CURRENT) DRUG THERAPY 07/12/2016 LINDA KAM Oleary [employer] T[employer]ER Ot Z85.118 PERSONAL HISTORY OF MALIGNANT NEOPLASM O 07/12/2016 KANNAN MCKEONSUMAN Mamta [employer] T[employer]ER Ot Z92.21 PERSONAL HISTORY OF ANTINEOPLASTIC CHEMO 07/12/2016 LINDA KAM Oleary [employer] T[employer]ER Ot Z92.3 PERSONAL HISTORY OF IRRADIATION 07/12/2016 YASMINE CHAVEZ Ot F17.220 NICOTINE DEPENDENCE, CHEWING TOBACCO, UN 07/12/2016 YASMINE CHAVEZ Ot M81.0 AGE-RELATED OSTEOPOROSIS W/O CURRENT PAT 07/12/2016 YASMINE CHAVEZ Ot N18.3 CHRONIC KIDNEY DISEASE, STAGE 3 (MODERAT 07/12/2016 YASMINE CHAVEZ Ot Z08 ENCNTR FOR FOLLOW-UP EXAM AFTER TRTMT FO 07/12/2016 YASMINE CHAVEZ Ot Z79.82 FOLDED CLOTH TAPER (CURRENT) USE OF ASPIRIN 07/12/2016 YASMINE CHAVEZ [...] FO 07/14/2016 YASMINE CHAVEZ N Ot Z79.82 HALF-WAY (CURRENT) USE OF ASPIRIN 07/14/2016 YASMINE CHAVEZ N Ot Z85.118 PERSONAL HISTORY OF MALIGNANT NEOPLASM O 07/14/2016 YASMINE CHAVEZ N Ot Z92.21 PERSONAL HISTORY OF ANTINEOPLASTIC CHEMO 07/14/2016 YASMINE CHAVEZ N Ot Z92.3 PERSONAL HISTORY OF IRRADIATION 08/17/2016 KAM MCKEON [employer] T[employer]ER Ot C34.11 MALIGNANT NEOPLASM OF UPPER LOBE, RIGHT 08/17/2016 KAM MCKEON [employer] T[employer]ER Ot R91.8 OTHER NONSPECIFIC ABNORMAL FINDING OF AMIE 08/22/2016 YASMINE CHAVEZ N Ot F17.220 NICOTINE DEPENDENCE, CHEWING TOBACCO, UN 08/22/2016 YASMINE CHAVEZ N Ot M81.0 AGE-RELATED OSTEOPOROSIS W/O CURRENT PAT 08/22/2016 YASMINE CHAVEZ N Ot N18.3 CHRONIC KIDNEY DISEASE, STAGE 3 (MODERAT 08/22/2016 YASMINE CHAVEZ N Ot Z08 ENCNTR FOR FOLLOW-UP EXAM AFTER TRTMT FO 08/22/2016 YASMINE CHAVEZ N Ot Z79.82 FOLDED CLOTH TAPER (CURRENT) USE OF ASPIRIN 08/22/2016 YASMINE CHAVEZ [...] FO 09/08/2016 YASMINE CHAVEZ N Ot Z79.82 FOLDED CLOTH TAPER (CURRENT) USE OF ASPIRIN 09/08/2016 KATHY BOBAN [...] FO 10/12/2016 YASMINE CHAVEZ N Ot Z79.82 FOLDED CLOTH TAPER (CURRENT) USE OF ASPIRIN 10/12/2016 YASMINE CHAVEZ [...] FO 10/18/2016 YASMINE CHAVEZ N Ot Z79.82 HALF-WAY (CURRENT) USE OF ASPIRIN 10/18/2016 YASMINE CHAVEZ Ot Z85.118 PERSONAL HISTORY OF MALIGNANT NEOPLASM O 10/18/2016 YASMINE CHAVEZ Ot Z92.21 PERSONAL HISTORY OF ANTINEOPLASTIC CHEMO 10/18/2016 YASMINE CHAVEZ Ot Z92.3 PERSONAL HISTORY OF IRRADIATION 10/19/2016 YSAMINE CHAVEZ Ot F17.220 NICOTINE DEPENDENCE, CHEWING TOBACCO, UN 10/19/2016 YASMINE CHAVEZ Ot M81.0 AGE-RELATED OSTEOPOROSIS W/O CURRENT PAT 10/19/2016 YASMINE CHAVEZ Ot N18.3 CHRONIC KIDNEY DISEASE, STAGE 3 (MODERAT 10/19/2016 YASMINE CHAVEZ Ot Z08 ENCNTR FOR FOLLOW-UP EXAM AFTER TRTMT FO 10/19/2016 YASMINE CHAVEZ Ot Z79.82 HALF-WAY (CURRENT) USE OF ASPIRIN 10/19/2016 YASMINE CHAVEZ [...] V82.81 SCREENING FOR OSTEOPOROSIS 11/15/2016 KAM MCKEON [employer]ER Ot 733.00 OSTEOPOROSIS NOS 11/15/2016 KAM MCKEON [employer] T[employer]ER Ot V10.11 HX-BRONCHOGENIC MALIGNAN 11/15/2016 KAM MCKEON [employer]ER Ot V58.66 LONG-TERM (CURRENT) USE OF ASPIRIN 11/15/2016 KAM MCKEON [employer]ER Ot V58.69 OTH MED,LT,CURRENT USE 11/15/2016 KAM MCKEON [employer] Ot V67.1 RADIOTHERAPY FOLLOW-UP 11/15/2016 KAM MCKEON [employer]ER Ot V67.2 CHEMOTHERAPY FOLLOW-UP 11/15/2016 KAM MCKEON [employer]ER Ot 162.9 MAL ALEXANDRO BRONCH/LUNG NOS 11/15/2016 KAM MCKEON [employer] T[employer]ER Ot 562.10 DIVERTICULOSIS COLON (W/O MENT OF HEMORR 11/15/2016 KAM MCKEON [employer] T[employer]ER Ot 285.9 ANEMIA NOS 11/15/2016 KAM MCKEON [employer] T[employer]ER Ot 585.3 CHRONIC KIDNEY DISEASE, STAGE III (MODER 11/15/2016 KAM MCKEON [employer] T[employer]ER Ot 733.00 OSTEOPOROSIS NOS 11/15/2016 KAM MCKEON [employer] T[employer]ER Ot V10.11 HX-BRONCHOGENIC MALIGNAN 11/15/2016 KAM MCKEON [employer] T[employer]ER Ot V58.66 LONG-TERM (CURRENT) USE OF ASPIRIN 11/15/2016 KAM MCKEON Ot V58.69 OTH MED,LT,CURRENT USE 11/15/2016 KAM MCKEON [employer] T[employer]ER Ot V67.1 RADIOTHERAPY FOLLOW-UP 11/15/2016 KAM MCKEON [employer] T[employer]ER Ot V67.2 CHEMOTHERAPY FOLLOW-UP 11/15/2016 KAM MCKEON [employer]ER Ot 285.9 ANEMIA NOS 11/15/2016 KAM MCKEON [employer]ER Ot 585.3 CHRONIC KIDNEY DISEASE, STAGE III (MODER 11/15/2016 KAM MCKEON [employer]ER Ot 733.00 OSTEOPOROSIS NOS 11/15/2016 KAM MCKEON [employer] T[employer]ER Ot V10.11 HX-BRONCHOGENIC MALIGNAN 11/15/2016 KAM MCKEON [employer]ER Ot V58.66 LONG-TERM (CURRENT) USE OF ASPIRIN 11/15/2016 KAM MCKEON [employer] T[employer]ER Ot V58.69 OTH MED,LT,CURRENT USE 11/15/2016 KAM MCKEON [employer] T[employer]ER Ot V67.1 RADIOTHERAPY FOLLOW-UP 11/15/2016 LINDA KAM Oleary [employer] T[employer]ER Ot V67.2 CHEMOTHERAPY FOLLOW-UP 11/15/2016 MCKEON KAM Oleary [employer]ER Ot F17.220 NICOTINE DEPENDENCE, CHEWING TOBACCO, UN 11/15/2016 MCKEON KAM Oleary [employer]ER Ot M81.0 AGE-RELATED OSTEOPOROSIS W/O CURRENT PAT 11/15/2016 MCKEON KAM Oleary [employer]ER Ot Z08 ENCNTR FOR FOLLOW-UP EXAM AFTER TRTMT FO 11/15/2016 KANNAN MCKEONSUMAN Oleary [employer]ER Ot Z79.899 OTHER FOLDED CLOTH TAPER (CURRENT) DRUG THERAPY 11/15/2016 LINDA KAM Mamta [employer] T[employer]ER Ot Z85.118 PERSONAL HISTORY OF MALIGNANT NEOPLASM O 11/15/2016 KANNAN MCKEONSUMAN Mamta [employer] T[employer]ER Ot Z92.21 PERSONAL HISTORY OF ANTINEOPLASTIC CHEMO 11/15/2016 KANNAN MCKEONSUMAN Mamta [employer] T[employer]ER Ot Z92.3 PERSONAL HISTORY OF IRRADIATION 11/15/2016 KANNAN MCKEONSUMAN Mamta [employer] T[employer]ER Ot C34.11 MALIGNANT NEOPLASM OF UPPER LOBE, [...] TRTMT FO 11/15/2016 YASMINE CHAVEZ Ot Z79.82 HALF-WAY (CURRENT) USE OF ASPIRIN 11/15/2016 YASMINE CHAVEZ [...] FO 11/15/2016 YASMINE CHAVEZ N Ot Z79.82 FOLDED CLOTH TAPER (CURRENT) USE OF ASPIRIN 11/15/2016 YASMINE CHAVEZ N Ot Z85.118 PERSONAL HISTORY OF MALIGNANT NEOPLASM O 11/15/2016 YASMINE CHAVEZ N Ot Z92.21 PERSONAL HISTORY OF ANTINEOPLASTIC CHEMO 11/15/2016 YASMINE CHAVEZ N Ot Z92.3 PERSONAL HISTORY OF IRRADIATION 11/16/2016 KAM MCKEON [employer] T[employer]ER Ot C34.11 MALIGNANT NEOPLASM OF UPPER LOBE, RIGHT 12/20/2016 KAM MCKEON [employer] T[employer]ER Ot C34.11 MALIGNANT NEOPLASM OF UPPER LOBE, RIGHT 12/21/2016 YASMINE CHAVEZ N Ot F17.220 NICOTINE DEPENDENCE, CHEWING TOBACCO, UN 12/21/2016 YASMINE CHAVEZ N Ot M81.0 AGE-RELATED OSTEOPOROSIS W/O CURRENT PAT 12/21/2016 YASMINE CHAVEZ N Ot N18.3 CHRONIC KIDNEY DISEASE, STAGE 3 (MODERAT 12/21/2016 YASMINE CHAVEZ N Ot Z08 ENCNTR FOR FOLLOW-UP EXAM AFTER TRTMT FO 12/21/2016 YASMINE CHAVEZ N Ot Z79.82 HALF-WAY (CURRENT) USE OF ASPIRIN 12/21/2016 YASMINE CHAVEZ N Ot Z85.118 PERSONAL HISTORY [...] FO 01/09/2017 YASMINE CHAVEZ N Ot Z79.82 HALF-WAY (CURRENT) USE OF ASPIRIN 01/09/2017 KATHY YASMINE [...] FO 02/13/2017 YASMINE CHAVEZ N Ot Z79.82 HALF-WAY (CURRENT) USE OF ASPIRIN 02/13/2017 YASMINE CHAVEZ [...] FO 07/27/2017 YASMINE CHAVEZ N Ot Z79.82 HALF-WAY (CURRENT) USE OF ASPIRIN 07/27/2017 YASMINE CHAVEZ [...] TRTMT FO 08/07/2017 YASMINE CHAVEZ Ot Z79.82 HALF-WAY (CURRENT) USE OF ASPIRIN 08/07/2017 YASMINE CHAVEZ Ot Z85.118 PERSONAL HISTORY OF MALIGNANT NEOPLASM O 08/07/2017 YASMINE CHAVEZ Ot Z92.21 PERSONAL HISTORY OF ANTINEOPLASTIC CHEMO 08/07/2017 YASMINE CHAVEZ Ot Z92.3 PERSONAL HISTORY OF IRRADIATION 01/15/2018 Ot 162.9 MAL ALEXANDRO BRONCH/LUNG NOS 01/15/2018 Ot 733.00 OSTEOPOROSIS NOS 01/15/2018 Ot V82.81 SCREENING FOR OSTEOPOROSIS 01/15/2018 KAM MCKEON S [employer]ER Ot 733.00 OSTEOPOROSIS NOS 01/15/2018 KAM MCKEON S [employer] T[employer]ER Ot V10.11 HX-BRONCHOGENIC MALIGNAN 01/15/2018 KAM MCKEON S [employer] T[employer]ER Ot V58.66 LONG-TERM (CURRENT) USE OF ASPIRIN 01/15/2018 KAM MCKEON S [employer] T[employer]ER Ot V58.69 OTH MED,LT,CURRENT USE 01/15/2018 KAM MCKEON S [employer] T[employer]ER Ot V67.1 RADIOTHERAPY FOLLOW-UP 01/15/2018 KAM MCKEON S [employer] T[employer]ER Ot V67.2 CHEMOTHERAPY FOLLOW-UP 01/15/2018 KAM MCKEON S [employer]ER Ot 162.9 MAL ALEXANDRO BRONCH/LUNG NOS 01/15/2018 KAM MCKEON S [employer] T[employer]ER Ot 562.10 DIVERTICULOSIS COLON (W/O MENT OF HEMORR 01/15/2018 KAM MCKEON S [employer] Ot 285.9 ANEMIA NOS 01/15/2018 KAM MCKEON S [employer] T[employer]ER Ot 585.3 CHRONIC KIDNEY DISEASE, STAGE III (MODER 01/15/2018 MCKEONKAM S [employer] T[employer]ER Ot 733.00 OSTEOPOROSIS NOS 01/15/2018 KANNAN MCKEONAH S [employer] T[employer]ER Ot V10.11 HX-BRONCHOGENIC MALIGNAN 01/15/2018 MCKEONKAM S [employer] T[employer]ER Ot V58.66 LONG-TERM (CURRENT) USE OF ASPIRIN 01/15/2018 MCKEONKAM S [employer] T[employer]ER Ot V58.69 OTH MED,LT,CURRENT USE 01/15/2018 KAM MCKEON S [employer] T[employer]ER Ot V67.1 RADIOTHERAPY FOLLOW-UP 01/15/2018 KAM MCKEON [employer]ER Ot V67.2 CHEMOTHERAPY FOLLOW-UP 01/15/2018 MCKEON KAM Oleary [employer] T[employer]ER Ot 285.9 ANEMIA NOS 01/15/2018 KAM MCKEON [employer] T[employer]ER Ot 585.3 CHRONIC KIDNEY DISEASE, STAGE III (MODER 01/15/2018 MCKEONKAM Oleary [employer] T[employer]ER Ot 733.00 OSTEOPOROSIS NOS 01/15/2018 LINDA KAM Oleary [employer] T[employer]ER Ot V10.11 HX-BRONCHOGENIC MALIGNAN 01/15/2018 MCKEONKAM Oleary [employer] T[employer]ER Ot V58.66 LONG-TERM (CURRENT) USE OF ASPIRIN 01/15/2018 LINDA KAM Oleary [employer] T[employer]ER Ot V58.69 OTH MED,LT,CURRENT USE 01/15/2018 KAM MCKEON [employer] T[employer]ER Ot V67.1 RADIOTHERAPY FOLLOW-UP 01/15/2018 LINDA KAM Oleary [employer] T[employer]ER Ot V67.2 CHEMOTHERAPY FOLLOW-UP 01/15/2018 LINDA KAM Oleary [employer]ER Ot F17.220 NICOTINE DEPENDENCE, CHEWING TOBACCO, UN 01/15/2018 MCKEON KAM Oleary [employer] T[employer]ER Ot M81.0 AGE-RELATED OSTEOPOROSIS W/O CURRENT PAT 01/15/2018 LINDA KAM Oleary [employer]ER Ot Z08 ENCNTR FOR FOLLOW-UP EXAM AFTER TRTMT FO 01/15/2018 MCKEON KAM Oleary [employer] Ot Z79.899 OTHER HALF-WAY (CURRENT) DRUG THERAPY 01/15/2018 LINDA KAM Oleary [employer] Ot Z85.118 PERSONAL HISTORY OF MALIGNANT NEOPLASM O 01/15/2018 LINDA KAM Oleary [employer] T[employer]ER Ot Z92.21 PERSONAL HISTORY OF ANTINEOPLASTIC CHEMO 01/15/2018 LINDA KAM Oleary [employer] T[employer]ER Ot Z92.3 PERSONAL HISTORY OF IRRADIATION 01/15/2018 LINDA KAM Oleary [employer] T[employer]ER Ot C34.11 MALIGNANT NEOPLASM OF UPPER LOBE, RIGHT 01/15/2018 LINDA KAM Oleary [employer] T[employer]ER Ot R91.8 OTHER NONSPECIFIC ABNORMAL FINDING OF AMIE 01/15/2018 LINDA KAM Oleary [employer] T[employer]ER Ot C34.11 MALIGNANT NEOPLASM OF UPPER LOBE, RIGHT 01/16/2018 YASMINE CHAVEZ Ot F17.220 NICOTINE DEPENDENCE, CHEWING TOBACCO, UN 01/16/2018 KATHY, BOBAN N Ot M81.0 AGE-RELATED OSTEOPOROSIS W/O CURRENT PAT 01/16/2018 KATHYANN MARIE VERDINAN N Ot N18.3 CHRONIC KIDNEY DISEASE, STAGE 3 (MODERAT 01/16/2018 KATHYANN MARIE VERDINAN N Ot Z08 ENCNTR FOR FOLLOW-UP EXAM AFTER TRTMT FO 01/16/2018 ANN MARIE CHAVEZAN N Ot Z79.82 FOLDED CLOTH TAPER (CURRENT) USE OF ASPIRIN 01/16/2018 KATHY, BOBAN [...] FO 01/16/2018 KATHY BOBAN N Ot Z79.82 FOLDED CLOTH TAPER (CURRENT) USE OF ASPIRIN 01/16/2018 KATHY, BOBAN [...] FO 01/21/2018 KATHY BOBAN N Ot Z79.82 FOLDED CLOTH TAPER (CURRENT) USE OF ASPIRIN 01/21/2018 KATHY, BOBAN [...] TRTMT FO 02/06/2018 YASMINE CHAVEZ Ot Z79.82 HALF-WAY (CURRENT) USE OF ASPIRIN 02/06/2018 YASMINE CHAVEZ Ot Z85.118 PERSONAL HISTORY OF MALIGNANT NEOPLASM O 02/06/2018 YASMINE CHAVEZ Ot Z92.21 PERSONAL HISTORY OF ANTINEOPLASTIC CHEMO 02/06/2018 YASMINE CHAVEZ Ot Z92.3 PERSONAL HISTORY OF IRRADIATION Procedures There is no data. Results There is no data. Encounters ACCT No. Visit Date/Time Discharge Status Pt. Type Provider Facility Loc./Unit Complaint [id number] 03/28/2018 12:43:00 03/28/2018 23:59:59 CLS Outpatient YASMINE CHAVEZ [facility] ONC [id number] 01/15/2018 10:00:00 01/15/2018 23:59:59 CLS Outpatient YASMINE CHAVEZ [facility] ONC [id number] 07/31/2017 10:09:00 08/07/2017 09:45:00 DIS Outpatient YASMINE CHAVEZ [facility] ONC [id number] 07/31/2017 13:29:00 07/31/2017 23:59:59 CLS Preadmit KAM MCKEON [facility] RAD LUNG CA C34.11 [id number] 11/29/2016 10:33:00 02/13/2017 00:01:00 DIS Outpatient YASMINE CHAVEZ [facility] ONC [id number] 11/15/2016 11:51:00 11/15/2016 23:59:59 CLS Outpatient KAM MCKEON [facility] RAD LUNG CANCER [id number] 07/14/2016 13:41:00 10/12/2016 00:01:00 DIS Outpatient YASMINE CHAVEZ [place] [facility] ONC [id number] 07/12/2016 09:34:00 07/12/2016 23:59:59 CLS Outpatient MCKEONKANNANAH S [employer] [facility] RAD LUNG CANCER [id number] 03/17/2016 12:56:00 06/15/2016 00:01:00 DIS Outpatient YASMINE CHAVEZ [place] [facility] ONC [id number] 09/15/2015 13:02:00 09/15/2015 23:59:59 CLS Outpatient KAM MCKEON S [employer] [facility] ONC [id number] 03/19/2015 10:08:00 06/17/2015 00:01:00 DIS Outpatient YASMINE CHAVEZ [place] [facility] ONC [id number] 09/17/2014 09:36:00 09/17/2014 23:59:59 CLS Outpatient KAM MCKEON S [employer] [facility] ONC [id number] 03/12/2014 10:31:00 06/10/2014 00:01:00 DIS Outpatient YASMINE CHAVEZ [place] [facility] ONC [id number] 11/21/2013 09:57:00 02/19/2014 00:01:00 DIS Outpatient YASMINE CHAVEZ [place] [facility] ONC [id number] 10/31/2013 12:44:00 10/31/2013 23:59:59 CLS Outpatient KAM MCKEON S [employer] [facility] ONC [id number] 10/15/2013 09:54:00 10/15/2013 23:59:59 CLS Outpatient MCKEONKAM Oleary S [employer] [facility] RAD LUNG CA [id number] 04/22/2013 11:58:00 04/22/2013 23:59:59 CLS Outpatient MCKEON, HILAH S [employer] [facility] ONC OV [id number] 10/22/2012 13:14:00 Document Registration [id number] 10/12/2012 09:54:00 Document Registration [id number] 07/05/2012 13:22:00 Document Registration [id number] 06/26/2012 10:11:00 Document Registration [id number] 03/01/2012 09:34:00 Document Registration [id number] 10/27/2011 09:44:00 Document Registration [id number] 10/18/2011 10:21:00 Document Registration [id number] 09/13/2011 15:02:00 Document Registration [id number] 07/25/2011 08:54:00 Document Registration [id number] 06/02/2011 09:40:00 Document Registration [id number] 05/05/2011 10:43:00 Document Registration [id number] 04/28/2011 10:07:00 Document Registration [id number] 04/14/2011 12:32:00 Document Registration
== END 2018-04-04 14:50 | disposition short-term general hospital (02) | DRG 282 ==
LOC: ICU 06:47 → UNDOADMIN 06:50 → OBSVTOIN 08:45 → EDSTATUS 12:00 → ICU 14:12 → UNDODISIN 14:50
PROVIDERS: ADMIT Internal Medicine Cardiovascular Disease; ATTEND Internal Medicine Cardiovascular Disease
PROC: 4A023N7 Measurement of Cardiac Sampling and Pressure, Left Heart, Percutaneous Approach (ICD-10-PCS; principal; 2018-04-04)
PROC: B2151ZZ Fluoroscopy of Left Heart using Low Osmolar Contrast (ICD-10-PCS; 2018-04-04)
PROC: B2111ZZ Fluoroscopy of Multiple Coronary Arteries using Low Osmolar Contrast (ICD-10-PCS; 2018-04-04)
PROC: B3101ZZ Fluoroscopy of Thoracic Aorta using Low Osmolar Contrast (ICD-10-PCS; 2018-04-04)
DX: I21.4 Non-ST elevation (NSTEMI) myocardial infarction (principal); I25.10 Atherosclerotic heart disease of native coronary artery without angina pectoris; I10 Essential (primary) hypertension; J44.9 Chronic obstructive pulmonary disease, unspecified; N28.9 Disorder of kidney and ureter, unspecified; R73.9 Hyperglycemia, unspecified; Z85.118 Personal history of other malignant neoplasm of bronchus and lung; Z92.21 Personal history of antineoplastic chemotherapy; Z79.52 Long term (current) use of systemic steroids; Z79.899 Other long term (current) drug therapy
CPT/HCPCS: 36221; 36415; 80048; 84484; 85027; 85610; 85730; 87081; 93458

== ENCOUNTER → 2018-08-29 | Outpatient (CLI) | payer MEDICARE ==
[~2018-08-29] MED LIST changes: +ALEN70TA47 PO; +ASPI-983 PO; +BENZ-36 PO; +CALC-901 PO; +GUAI600T43 PO; -IOHEXOL 350 MG/ML 100 ML (OMNIPAQUE 350) VIAL IV ONE; +IPRA3AMP31 IH; +IPRA4AER IH; +KRIL1CAP20 PO; +METO-333 PO; +METOPROLOL 25MG; -NS 100 ML (IVPB) BAG IV ONE; +OMEP20CA12 PO; +PRED10TA22 PO; +REGADENOSON 0.4 MG/5 ML SYR (LEXISCAN) IV ONE
[2018-08-29 13:17] VITALS: BP 119/73
[2018-08-29 13:19] VITALS: BP 133/79
--- NOTE | 2018-08-29 18:02 | STRESS TEST ---
DATE OF SERVICE: 08/29/2018 LEXISCAN MYOVIEW STRESS TEST REPORT Baseline heart rate is 77, baseline blood pressure 165/85. Baseline EKG is sinus rhythm with no ischemic changes. In summary, the patient was injected with 10.71 mCi of technetium-99 Myoview and the resting images were obtained. Then, the patient received 0.4 mg of Lexiscan followed by 32.5 mCi of technetium-99 Myoview. Throughout the test, there were no EKG changes. The resting and stress images were reviewed and compared in the short axis, horizontal long axis, and vertical long axis views. Review of the images showed good radiotracer uptake with no significant ischemia or infarction. SSS is 0. TID value 1.01. On the gated images, the left ventricle appeared to be normal size with normal contractility. Calculated ejection fraction 53%. CONCLUSION: 1. The patient tolerated Lexiscan well. 2. No significant ischemia or infarction on SPECT images. 3. Normal left ventricular size with normal contractility. Calculated ejection fraction 53%. Job ID: [id number] DocumentID: [id number] Dictated Date: 08/29/2018 14:50:21 Deputy Manager Date: 08/29/2018 18:01:21 Dictated By: DMITRI ESPITIA MD
== END ==
LOC: CARD 10:56
PROVIDERS: ATTEND Physician Assistant
DX: I25.10 Atherosclerotic heart disease of native coronary artery without angina pectoris (principal); I10 Essential (primary) hypertension; I27.20 Pulmonary hypertension, unspecified; Z87.891 Personal history of nicotine dependence
CPT/HCPCS: 78452; 93017

== ENCOUNTER 2018-09-27 12:53 | Outpatient (RCR) | payer MEDICARE ==
[~2018-09-27 12:53] MED LIST changes: -ALEN70TA47 PO; +ALEN70TA5 PO; -CATHETER FLUSH 10 ML SYR IV PRN; -REGADENOSON 0.4 MG/5 ML SYR (LEXISCAN) IV ONE
[2018-09-27 13:08] LABS: BASOPHILS # (AUTO) 0.1 10^3/uL (0.0-0.1); BASOPHILS % (AUTO) 1 % (0-10); EOSINOPHILS # (AUTO) 0.4 10^3/uL (0.0-0.3); EOSINOPHILS % (AUTO) 6 % (0-10); HEMATOCRIT 38 % (40-54); HEMOGLOBIN 11.8 G/DL (13.3-17.7); LYMPHOCYTES # (AUTO) 0.6 X 10^3 (1.0-4.0); LYMPHOCYTES % (AUTO) 9 % (12-44); MEAN CORPUSCULAR HEMOGLOBIN 27 PG (25-34); MEAN CORPUSCULAR HGB CONC 31 G/DL (32-36); MEAN CORPUSCULAR VOLUME 88 FL (80-99); MEAN PLATELET VOLUME 9.5 FL (7.4-10.4); MONOCYTES # (AUTO) 0.7 X 10^3 (0.0-1.0); MONOCYTES % (AUTO) 10 % (0-12); NEUTROPHILS # (AUTO) 5.1 X 10^3 (1.8-7.8); NEUTROPHILS % (AUTO) 74 % (42-75); PLATELET COUNT 243 10^3/uL (130-400); RED CELL DISTRIBUTION WIDTH 14.5 % (10.0-14.5); WHITE BLOOD COUNT 6.9 10^3/uL (4.3-11.0)
[2018-09-27 13:39] LABS: ALANINE AMINOTRANSFERASE 15 U/L (0-55); ALBUMIN 3.6 GM/DL (3.2-4.5); ALKALINE PHOSPHATASE 72 U/L (40-136); BILIRUBIN,TOTAL 0.4 MG/DL (0.1-1.0); BUN/CREATININE RATIO 18; CALCIUM 9.7 MG/DL (8.5-10.1); CARBON DIOXIDE 29 MMOL/L (21-32); CHLORIDE 107 MMOL/L (98-107); CREATININE SERUM 1.08 MG/DL (0.60-1.30); GFR ESTIMATED > 60; GLUCOSE 94 MG/DL (70-105); POTASSIUM 3.8 MMOL/L (3.6-5.0); SODIUM 144 MMOL/L (135-145); TOTAL PROTEIN 7.1 GM/DL (6.4-8.2)
== END 2018-12-26 | disposition home or self-care (01) ==
LOC: ONC 12:53
PROVIDERS: ATTEND Internal Medicine Hematology & Oncology
DX: Z08 Encounter for follow-up examination after completed treatment for malignant neoplasm (principal); Z85.118 Personal history of other malignant neoplasm of bronchus and lung; N18.3 Chronic kidney disease, stage 3 (moderate); M81.0 Age-related osteoporosis without current pathological fracture; F17.220 Nicotine dependence, chewing tobacco, uncomplicated; Z79.82 Long term (current) use of aspirin; Z92.21 Personal history of antineoplastic chemotherapy; Z92.3 Personal history of irradiation
CPT/HCPCS: 36415; 80053; 83615; 85025; 99213

== ENCOUNTER → 2018-10-15 | Outpatient (CLI) | payer MEDICARE ==
[~2018-10-15] MED LIST changes: +ALEN70TA47 PO; -ALEN70TA5 PO
--- NOTE | 2018-10-15 20:45 | Diagnostic Imaging Report ---
EXAM: CT CHEST SCREENING WO INDICATION: 64-[id number]-[id number] smoking history. Quit 10 years ago. COMPARISON: CT chest with IV contrast 11/15/2016. FINDINGS: Advanced centrilobular emphysema. Again seen is the pleural thickening containing calcifications along the right upper lobe, greatest along the medial aspect. Stable consolidation along the medial aspect of the right upper lobe. There is a new tiny left pleural effusion. The spiculated nodule in the left upper lobe has progressed since the prior exam and now measures up to 1.4 x 1.1 cm, previously 1.2 x 0.6 cm when measured in a similar fashion. There is also new diffuse reticular nodular opacities with surrounding groundglass opacities throughout the inferior left lower lobe. The largest irregular nodule in the left lower lobe measures up to 1.7 cm. Diffuse mild bronchiectasis. No endobronchial lesions are identified. Enlarged subcarinal lymph node measuring up 1.4 cm in short axis dimension, is new since the prior exam. No definite hilar lymphadenopathy on this noncontrast exam. No axillary lymphadenopathy. Stable compression deformities of T5 and T7. No suspicious osteoblastic or lytic lesions. Ill-defined low-attenuation mass in the left adrenal gland is poorly characterized on this low-dose CT. This is likely stable compared to the prior exam and measures up to 2.9 cm. IMPRESSION: 1. Interval progression of a spiculated nodule in the left upper lobe. There are also new diffuse reticular nodular opacities and groundglass opacities in the inferior left lower lobe. New subcarinal lymphadenopathy. Lung rads category 4X. Recommend nuclear medicine FDG PET/CT versus tissue sampling. 2. Advanced centrilobular emphysema. 3. Stable atelectasis and pleural thickening with calcifications along the right upper lobe. Lung Rads category: 4X Modifier: None. Please note that the low-dose technique of this chest CT is of non-diagnostic quality. This study is only intended for lung cancer screening of high risk patients. Report will be called to [facility] Fishman, Monday10/16/2018/dee Report was called to [employer] of [facility] by justin at 8:23 am and will be faxed at 8:28 am. Dictated by: Dictated on workstation # [id number]
== END ==
LOC: RAD 10:51
PROVIDERS: ATTEND Nurse Practitioner Adult Health
DX: Z12.2 Encounter for screening for malignant neoplasm of respiratory organs (principal); J43.2 Centrilobular emphysema; R91.8 Other nonspecific abnormal finding of lung field; R59.0 Localized enlarged lymph nodes; J98.11 Atelectasis; I25.10 Atherosclerotic heart disease of native coronary artery without angina pectoris; I10 Essential (primary) hypertension; I27.20 Pulmonary hypertension, unspecified; Z87.891 Personal history of nicotine dependence
CPT/HCPCS: 93306

== ENCOUNTER → 2019-01-15 | Outpatient (CLI) | payer MEDICARE ==
[~2019-01-15] MED LIST changes: -ALEN70TA47 PO; +ALEN70TA5 PO
== END ==
LOC: RAD 10:56
PROVIDERS: ATTEND Nurse Practitioner Adult Health
DX: C34.11 Malignant neoplasm of upper lobe, right bronchus or lung (principal); J44.9 Chronic obstructive pulmonary disease, unspecified; Z53.8 Procedure and treatment not carried out for other reasons

== ENCOUNTER 2019-04-09 13:28 | Outpatient (RCR) | payer MEDICARE ==
[2019-01-15 10:38] LABS: BASOPHILS # (AUTO) 0.1 10^3/uL (0.0-0.1); BASOPHILS % (AUTO) 1 % (0-10); EOSINOPHILS # (AUTO) 0.2 10^3/uL (0.0-0.3); EOSINOPHILS % (AUTO) 2 % (0-10); HEMATOCRIT 42 % (40-54); HEMOGLOBIN 13.7 G/DL (13.3-17.7); LYMPHOCYTES # (AUTO) 0.8 X 10^3 (1.0-4.0); LYMPHOCYTES % (AUTO) 8 % (12-44); MEAN CORPUSCULAR HEMOGLOBIN 29 PG (25-34); MEAN CORPUSCULAR HGB CONC 33 G/DL (32-36); MEAN CORPUSCULAR VOLUME 90 FL (80-99); MEAN PLATELET VOLUME 9.3 FL (7.4-10.4); MONOCYTES # (AUTO) 1.1 X 10^3 (0.0-1.0); MONOCYTES % (AUTO) 11 % (0-12); NEUTROPHILS % (AUTO) 79 % (42-75); PLATELET COUNT 213 10^3/uL (130-400); RED CELL DISTRIBUTION WIDTH 15.3 % (10.0-14.5); WHITE BLOOD COUNT 10.1 10^3/uL (4.3-11.0)
[2019-01-15 10:59] LABS: ALANINE AMINOTRANSFERASE 28 U/L (0-55); ALBUMIN 3.8 GM/DL (3.2-4.5); ALKALINE PHOSPHATASE 59 U/L (40-136); BILIRUBIN,TOTAL 0.8 MG/DL (0.1-1.0); BUN/CREATININE RATIO 21; CALCIUM 9.2 MG/DL (8.5-10.1); CARBON DIOXIDE 29 MMOL/L (21-32); CHLORIDE 106 MMOL/L (98-107); CREATININE SERUM 0.89 MG/DL (0.60-1.30); GFR ESTIMATED > 60; GLUCOSE 89 MG/DL (70-105); POTASSIUM 4.2 MMOL/L (3.6-5.0); SODIUM 143 MMOL/L (135-145); TOTAL PROTEIN 6.2 GM/DL (6.4-8.2)
--- NOTE | 2019-01-15 16:50 | Diagnostic Imaging Report ---
PROCEDURE: CT chest with contrast only. TECHNIQUE: Multiple contiguous axial images were obtained through the chest after administration of intravenous contrast. INDICATION: History of right lung non-small cell lung cancer. History of tobacco use. CORRELATION STUDY: 10/15/2018, 11/15/2016 FINDINGS: Postoperative changes about the right lung with distorted, consolidated fibrotic appearance about the medial aspect of the right upper lobe. The soft tissue component, retraction and distortion is relatively stable. There has been development of slight nodular appearance about the anterior aspect of the right middle lobe. This could be inflammatory/infectious in etiology. Spiculated region at the anterior aspect of the left upper lobe does persist. Area is somewhat difficult to quantify, measures approximately 23 x 12 mm in axial plane. It measures similar in fashion, appears to measure approximately 19 x 14 mm. However, this is somewhat difficult to accurately quantify given differences in imaging technique and the somewhat irregular shape. The findings are generally stable from prior study. Minimal airspace disease about the left lower lobe overall improved from previous study. No effusion. The mediastinal structures are distorted by the postoperative changes. The esophagus is rather distended and contains a significant amount of fluid. Heart size is enlarged. No definitive pathologically enlarged mediastinal lymph nodes. Left adrenal gland mass is relatively stable at approximately 3.2 x 1.8 cm. Marked compression fracture deformity at T7 and to a lesser degree, the inferior T5 endplates stable with accentuated kyphotic curvature. IMPRESSION: 1. Spiculated density at the anterior aspect of the left upper lobe overall likely relatively stable from most recent examination. However, if findings do persist, an underlying neoplasm should not be excluded at this time. PET/CT imaging would likely be an additional diagnostic utility. 2. Distended esophagus with extensive fluid distention. This does predispose potential aspiration. Etiology is somewhat indeterminate. Correlation with symptoms. Lung Rads category 4x Dictated by: Dictated on workstation # [id number]
[~2019-04-09 13:28] MED LIST changes: +HOLD METFORMIN - RECEIVED CONTRAST 20 ML VIAL IV SCH; +IOHEXOL 350 MG/ML 100 ML (OMNIPAQUE 350) VIAL IV ONE; +NS 100 ML (IVPB) BAG IV ONE
[2019-04-09 13:53] LABS: BASOPHILS # (AUTO) 0.1 10^3/uL (0.0-0.1); BASOPHILS % (AUTO) 1 % (0-10); EOSINOPHILS # (AUTO) 0.2 10^3/uL (0.0-0.3); EOSINOPHILS % (AUTO) 3 % (0-10); HEMATOCRIT 43 % (40-54); HEMOGLOBIN 13.9 G/DL (13.3-17.7); LYMPHOCYTES # (AUTO) 0.8 X 10^3 (1.0-4.0); LYMPHOCYTES % (AUTO) 13 % (12-44); MEAN CORPUSCULAR HEMOGLOBIN 29 PG (25-34); MEAN CORPUSCULAR HGB CONC 32 G/DL (32-36); MEAN CORPUSCULAR VOLUME 90 FL (80-99); MONOCYTES # (AUTO) 0.7 X 10^3 (0.0-1.0); MONOCYTES % (AUTO) 12 % (0-12); NEUTROPHILS # (AUTO) 4.1 X 10^3 (1.8-7.8); NEUTROPHILS % (AUTO) 70 % (42-75); PLATELET COUNT 186 10^3/uL (130-400); RED CELL DISTRIBUTION WIDTH 14.5 % (10.0-14.5); WHITE BLOOD COUNT 5.9 10^3/uL (4.3-11.0)
[2019-04-09 14:14] LABS: ALANINE AMINOTRANSFERASE 14 U/L (0-55); ALBUMIN 4.2 GM/DL (3.2-4.5); ALKALINE PHOSPHATASE 68 U/L (40-136); BILIRUBIN,TOTAL 0.7 MG/DL (0.1-1.0); BUN/CREATININE RATIO 17; CALCIUM 9.7 MG/DL (8.5-10.1); CARBON DIOXIDE 28 MMOL/L (21-32); CHLORIDE 110 MMOL/L (98-107); CREATININE SERUM 1.09 MG/DL (0.60-1.30); GFR ESTIMATED > 60; GLUCOSE 78 MG/DL (70-105); POTASSIUM 3.6 MMOL/L (3.6-5.0); SODIUM 147 MMOL/L (135-145); TOTAL PROTEIN 7.1 GM/DL (6.4-8.2)
== END 2019-04-15 | disposition home or self-care (01) ==
LOC: ONC 13:28
PROVIDERS: ATTEND Internal Medicine Hematology & Oncology
DX: D69.3 Immune thrombocytopenic purpura (principal); D46.9 Myelodysplastic syndrome, unspecified; Z85.118 Personal history of other malignant neoplasm of bronchus and lung; I12.9 Hypertensive chronic kidney disease with stage 1 through stage 4 chronic kidney disease, or unspecified chronic kidney disease; N18.3 Chronic kidney disease, stage 3 (moderate); I25.10 Atherosclerotic heart disease of native coronary artery without angina pectoris; E78.2 Mixed hyperlipidemia; J44.9 Chronic obstructive pulmonary disease, unspecified; M81.0 Age-related osteoporosis without current pathological fracture; F17.220 Nicotine dependence, chewing tobacco, uncomplicated; Z79.82 Long term (current) use of aspirin; Z79.899 Other long term (current) drug therapy; Z92.21 Personal history of antineoplastic chemotherapy; Z92.3 Personal history of irradiation
CPT/HCPCS: 36415; 71260; 80053; 83615; 85025; 99213

== ENCOUNTER → 2019-04-23 | Outpatient (CLI) | payer MEDICARE ==
[~2019-04-23] MED LIST changes: -HOLD METFORMIN - RECEIVED CONTRAST 20 ML VIAL IV SCH; -IOHEXOL 350 MG/ML 100 ML (OMNIPAQUE 350) VIAL IV ONE; -NS 100 ML (IVPB) BAG IV ONE
--- NOTE | 2019-04-23 20:21 | Diagnostic Imaging Report ---
EXAM: PET/CT INDICATION: Lung cancer, parenchymal mass EXAMINATION: After intravenous administration of 11.72 mCi of F18-FDG, a series of overlapping emission and transmission PET images was obtained. In the coronal, transaxial and sagittal planes, the area imaged extended from the skull base through the upper thighs. The previous PET/CT exam performed on 07/12/2016 noted a focal area of consolidation along the inferior aspect of the right middle lobe. There is no hypermetabolic activity to suggest malignancy. The recent CT chest exam of 01/15/2019 noted a spiculated density in the left upper lung. This finding seemed similar to the previous CT chest exam of 10/15/2018 but did seem somewhat worse than noted on the prior PET/CT exam. On this exam, there is only slight hypermetabolic activity associated with the parenchymal abnormality in the left upper lung. The maximum SUV is only 1.0. This finding may be secondary to indolent inflammatory/infectious process. The possibility that there is a slow growing neoplasm in this area should still be considered. I would recommend that a short-term (6 month) followup CT chest exam be performed for further study. There is no other hypermetabolic activity to suggest the presence of neoplasm. The abnormal parenchymal density in the the right upper lobe, the small nodule in the right middle lobe and the fluid-filled esophagus seen on the previous CT chest exam are again evident and no different. The images through the abdomen do show cholelithiasis without evidence for acute cholecystitis. The prostate gland is also enlarged. The intracranial contents, where visualized, are unremarkable. IMPRESSION: 1. The small irregular parenchymal density in the left upper lobe shows only a small amount of hypermetabolic activity. Consequently, this is unlikely to be neoplastic in nature. Even so, a six-month followup CT chest exam would be recommended for continued evaluation. 2. There is no other hypermetabolic activity to suggest the presence of neoplasm. 3. The esophagus remains filled with fluid. If further evaluation is desired, then either an upper GI exam or an endoscopy would be recommended. 4. There is cholelithiasis but no evidence for acute cholecystitis. Dictated by: Dictated on workstation # [id number]
== END ==
LOC: RAD 10:03
PROVIDERS: ATTEND Nurse Practitioner Adult Health
DX: C34.90 Malignant neoplasm of unspecified part of unspecified bronchus or lung (principal); K80.20 Calculus of gallbladder without cholecystitis without obstruction

== ENCOUNTER 2019-11-27 10:15 | Outpatient (RCR) | payer MEDICARE ==
[~2019-11-27 10:15] MED LIST changes: -OMEP20CA12 PO; +OMEP20CA18 PO
[2019-11-27 10:38] LABS: BASOPHILS # (AUTO) 0.1 10^3/uL (0.0-0.1); BASOPHILS % (AUTO) 1 % (0-10); EOSINOPHILS # (AUTO) 0.1 10^3/uL (0.0-0.3); EOSINOPHILS % (AUTO) 2 % (0-10); HEMATOCRIT 41 % (40-54); HEMOGLOBIN 13.8 G/DL (13.3-17.7); LYMPHOCYTES # (AUTO) 0.7 X 10^3 (1.0-4.0); LYMPHOCYTES % (AUTO) 11 % (12-44); MEAN CORPUSCULAR HEMOGLOBIN 30 PG (25-34); MEAN CORPUSCULAR HGB CONC 33 G/DL (32-36); MEAN CORPUSCULAR VOLUME 89 FL (80-99); MEAN PLATELET VOLUME 9.6 FL (7.4-10.4); MONOCYTES # (AUTO) 0.7 X 10^3 (0.0-1.0); MONOCYTES % (AUTO) 10 % (0-12); NEUTROPHILS # (AUTO) 4.9 X 10^3 (1.8-7.8); NEUTROPHILS % (AUTO) 76 % (42-75); PLATELET COUNT 201 10^3/uL (130-400); RED CELL DISTRIBUTION WIDTH 14.7 % (10.0-14.5); WHITE BLOOD COUNT 6.4 10^3/uL (4.3-11.0)
[2019-11-27 11:03] LABS: ALANINE AMINOTRANSFERASE 20 U/L (0-55); ALBUMIN 4.3 GM/DL (3.2-4.5); ALKALINE PHOSPHATASE 61 U/L (40-136); BILIRUBIN,TOTAL 0.5 MG/DL (0.1-1.0); BUN/CREATININE RATIO 26; CALCIUM 9.5 MG/DL (8.5-10.1); CARBON DIOXIDE 29 MMOL/L (21-32); CHLORIDE 108 MMOL/L (98-107); CREATININE SERUM 1.14 MG/DL (0.60-1.30); GFR ESTIMATED > 60; GLUCOSE 87 MG/DL (70-105); POTASSIUM 4.4 MMOL/L (3.6-5.0); SODIUM 144 MMOL/L (135-145); TOTAL PROTEIN 6.9 GM/DL (6.4-8.2)
== END 2020-02-25 | disposition home or self-care (01) ==
LOC: ONC 10:15
PROVIDERS: ATTEND Internal Medicine Hematology & Oncology
DX: Z08 Encounter for follow-up examination after completed treatment for malignant neoplasm (principal); Z85.118 Personal history of other malignant neoplasm of bronchus and lung; N18.3 Chronic kidney disease, stage 3 (moderate); M81.0 Age-related osteoporosis without current pathological fracture; F17.220 Nicotine dependence, chewing tobacco, uncomplicated; Z79.82 Long term (current) use of aspirin; Z92.21 Personal history of antineoplastic chemotherapy; Z92.3 Personal history of irradiation
CPT/HCPCS: 80053; 83615; 85025; 99213

== ENCOUNTER → 2019-12-04 | Outpatient (CLI) | payer MEDICARE ==
[~2019-12-04] MED LIST changes: +CATHETER FLUSH 10 ML SYR IV PRN; +HOLD METFORMIN - RECEIVED CONTRAST 20 ML VIAL IV SCH; +IOHEXOL 350 MG/ML 100 ML (OMNIPAQUE 350) VIAL IV ONE; +NS 100 ML (IVPB) BAG IV ONE; +OMEP-280 PO; -OMEP20CA18 PO
--- NOTE | 2019-12-04 11:07 | Diagnostic Imaging Report ---
EXAMINATION: CT Chest with intravenous contrast. TECHNIQUE: Multiple contiguous axial images were obtained through the chest after the uneventful administration of intravenous contrast. All CT scans use one or more of the following dose optimizing techniques: automated exposure control, MA and/or KvP adjustment based on a patient size and exam type, or iterative reconstruction. HISTORY: Lung cancer. COMPARISON: None available. FINDINGS: There is no edema or pneumonia. No pleural effusion. No pneumothorax. The left upper lobe nodule measures 11 x 6 mm, previously 11 x 4 mm and is best seen on the sagittal series image 118. There is chronic collapse of the right upper lobe with traction bronchiectasis and soft tissue thickening in the right hilum, unchanged and likely related to treatment for reported history of lung cancer. Lungs are moderately emphysematous. Heart size is normal. There is a small pericardial effusion. Aorta is normal in caliber. There is no axillary or supraclavicular lymphadenopathy. There is no mediastinal lymphadenopathy. There are moderate coronary artery calcifications. There is unchanged dilation of the upper esophagus. There is an unchanged 18 x 32 mm adrenal nodule on the left. There are unchanged moderate and severe compression fractures in the mid thoracic spine. IMPRESSION: 1. Persistent irregular left upper lobe nodule which may be mildly increased in size. This is likely too small for biopsy or PET/CT and continued short-term follow-up is recommended (three to six months). 2. Unchanged chronic collapse of the right upper lobe likely related to prior therapy for lung cancer. 3. Stable left adrenal nodules. Dictated by: Dictated on workstation # [id number]
== END ==
LOC: RAD 10:11
PROVIDERS: ATTEND Nurse Practitioner Adult Health
DX: C34.11 Malignant neoplasm of upper lobe, right bronchus or lung (principal); J44.9 Chronic obstructive pulmonary disease, unspecified; R91.1 Solitary pulmonary nodule; E27.9 Disorder of adrenal gland, unspecified; J98.19 Other pulmonary collapse
CPT/HCPCS: 71260

== ENCOUNTER 2020-05-26 10:31 | Outpatient (RCR) | payer MEDICARE ==
[~2020-05-26 10:31] MED LIST changes: +ASPI-1238 PO; -ASPI-983 PO; -CATHETER FLUSH 10 ML SYR IV PRN; -HOLD METFORMIN - RECEIVED CONTRAST 20 ML VIAL IV SCH; -IOHEXOL 350 MG/ML 100 ML (OMNIPAQUE 350) VIAL IV ONE; -NS 100 ML (IVPB) BAG IV ONE
[2020-05-26 10:47] LABS: BASOPHILS # (AUTO) 0.1 10^3/uL (0.0-0.1); BASOPHILS % (AUTO) 1 % (0-10); EOSINOPHILS # (AUTO) 0.2 10^3/uL (0.0-0.3); EOSINOPHILS % (AUTO) 4 % (0-10); HEMATOCRIT 42 % (40-54); HEMOGLOBIN 14.3 G/DL (13.3-17.7); LYMPHOCYTES # (AUTO) 0.9 X 10^3 (1.0-4.0); LYMPHOCYTES % (AUTO) 14 % (12-44); MEAN CORPUSCULAR HEMOGLOBIN 30 PG (25-34); MEAN CORPUSCULAR HGB CONC 34 G/DL (32-36); MEAN CORPUSCULAR VOLUME 88 FL (80-99); MEAN PLATELET VOLUME 9.7 FL (7.4-10.4); MONOCYTES # (AUTO) 0.6 X 10^3 (0.0-1.0); MONOCYTES % (AUTO) 9 % (0-12); NEUTROPHILS # (AUTO) 4.6 X 10^3 (1.8-7.8); NEUTROPHILS % (AUTO) 73 % (42-75); PLATELET COUNT 173 10^3/uL (130-400); WHITE BLOOD COUNT 6.3 10^3/uL (4.3-11.0)
[2020-05-26 11:05] LABS: ALANINE AMINOTRANSFERASE 14 U/L (0-55); ALBUMIN 4.2 GM/DL (3.2-4.5); ALKALINE PHOSPHATASE 56 U/L (40-136); BILIRUBIN,TOTAL 0.7 MG/DL (0.1-1.0); BUN/CREATININE RATIO 18; CALCIUM 9.5 MG/DL (8.5-10.1); CARBON DIOXIDE 24 MMOL/L (21-32); CHLORIDE 108 MMOL/L (98-107); CREATININE SERUM 1.08 MG/DL (0.60-1.30); GFR ESTIMATED > 60; GLUCOSE 95 MG/DL (70-105); POTASSIUM 4.3 MMOL/L (3.6-5.0); SODIUM 142 MMOL/L (135-145); TOTAL PROTEIN 6.9 GM/DL (6.4-8.2)
== END 2020-08-24 | disposition home or self-care (01) ==
LOC: ONC 10:31
PROVIDERS: ATTEND Internal Medicine Hematology & Oncology
DX: C34.11 Malignant neoplasm of upper lobe, right bronchus or lung (principal); D69.3 Immune thrombocytopenic purpura; R91.1 Solitary pulmonary nodule; J43.9 Emphysema, unspecified; K22.8 Other specified diseases of esophagus; M43.8X4 Other specified deforming dorsopathies, thoracic region; E27.8 Other specified disorders of adrenal gland; M40.294 Other kyphosis, thoracic region; R93.89 Abnormal findings on diagnostic imaging of other specified body structures; Z92.21 Personal history of antineoplastic chemotherapy; Z92.3 Personal history of irradiation; Z90.2 Acquired absence of lung [part of]
CPT/HCPCS: 71260; 80053; 85025; G0463; 99213

== ENCOUNTER → 2020-05-26 | Outpatient (CLI) | payer MEDICARE ==
[~2020-05-26] MED LIST changes: -OMEP-280 PO; +OMEP20CA18 PO
--- NOTE | 2020-05-26 13:00 | Diagnostic Imaging Report ---
PROCEDURE: CT chest with contrast only. TECHNIQUE: Multiple contiguous axial images were obtained through the chest after administration of intravenous contrast. Auto Exposure Controls were utilized during the CT exam to meet ALARA standards for radiation dose reduction. DATE: May 26, 2020 COMPARISON: CT chest December 04, 2019. INDICATION: 74-year-old male, history of lung cancer. Followup exam. Left upper lobe pulmonary nodule. FINDINGS: There are postoperative changes of right upper lobectomy. There is a right middle lobe pulmonary nodule on axial image 61 measuring 8 mm in size which is unchanged in size since the comparison exam. There are adjacent mild linear opacities in the right middle lobe likely reflecting scarring and/or atelectasis. There is very mild scarring in the adjacent right lower lobe. There are findings of centrilobular emphysema. There is an irregularly-shaped nodular opacity in the left upper lobe on axial image 55 which measures 2.5 x 1.4 cm in axial dimension. This previously measured 2.3 x 1.3 cm in size on December 04, 2019. The nodule appears slightly increased in fullness and internal opacification dating back to January 15, 2019. There is an additional focal area of irregular nodularity in the left upper lobe on sagittal image 106 measuring approximately 6 mm in size which is unchanged since November 24, 2019. There is no additional focal airspace consolidation. There is no pneumothorax. There is no pleural effusion. The central airways are patent. There is no identified pulmonary embolus. The main pulmonary artery diameter is within normal limits. There are coronary artery calcifications and additional areas of atherosclerotic disease. There is no pericardial effusion. There is no identified abnormally enlarged mediastinal, hilar, or axillary lymph node which meets CT size criteria for adenopathy. There is cholelithiasis without evidence of acute cholecystitis in the included field of view of imaging. There are subcentimeter low-attenuation right renal lesions too small to characterize. There is a lobulated left adrenal nodule on axial image 151 measuring 2.8 x 1.6 cm in size. This previously measured 3.0 x 1.8 cm in size on November 15, 2016 and is likely unchanged in size since that time. There is an additional high attenuation left adrenal nodule on axial image 143 measuring up to 1.8 cm in size which is also unchanged since November 15, 2016. Both of these adrenal nodules are indeterminate based on internal attenuation measurements. There is no identified bone lesion suspicious for bone metastasis. There are compression deformities of T5 and T7 with thoracic kyphosis which is unchanged since at least January 15, 2019. There is nonspecific wall thickening of the mid to distal esophagus. The upper esophagus is dilated. There is abnormal fluid attenuation in the esophagus. IMPRESSION: CT CHEST. 1. Left upper lobe irregular pulmonary nodule measuring approximately 2.5 x 1.4 cm in size which appears slightly increased in central attenuation fullness since January 15, 2019. Malignant etiology is difficult to exclude. Consider CT-guided biopsy for definitive diagnosis. 2. Additional left upper lobe pulmonary nodule measuring subcentimeter in size is unchanged since comparison exam. 3. Status post right upper lobectomy. Findings of centrilobular emphysema. 4. Abnormal wall thickening of the mid to distal esophagus with dilation of the upper esophagus and abnormal fluid attenuation in the esophagus. Esophagitis and malignancy are differential diagnostic considerations. Recommend correlation clinically and consider further evaluation with endoscopy. 5. Redemonstrated and unchanged compression deformities of T5 and T7 with thoracic kyphosis. 6. Adrenal nodules which are unchanged in size since at least 2016. Dictated by: Dictated on workstation # [id number]
== END ==
LOC: RAD 11:08
PROVIDERS: ATTEND Nurse Practitioner Adult Health
DX: J43.9 Emphysema, unspecified (principal); K22.8 Other specified diseases of esophagus; M43.8X4 Other specified deforming dorsopathies, thoracic region; E27.8 Other specified disorders of adrenal gland; M40.294 Other kyphosis, thoracic region; R93.89 Abnormal findings on diagnostic imaging of other specified body structures; R91.1 Solitary pulmonary nodule; Z85.118 Personal history of other malignant neoplasm of bronchus and lung; Z90.2 Acquired absence of lung [part of]
CPT/HCPCS: 71260

== ENCOUNTER → 2020-08-24 | Outpatient (CLI) | payer MEDICARE ==
[~2020-08-24] MED LIST changes: +CATHETER FLUSH 10 ML SYR IV PRN; +HOLD METFORMIN - RECEIVED CONTRAST 20 ML VIAL IV SCH; +IOHEXOL 350 MG/ML 100 ML (OMNIPAQUE 350) VIAL IV ONE; +NS 100 ML (IVPB) BAG IV ONE
--- NOTE | 2020-08-24 13:57 | Diagnostic Imaging Report ---
PROCEDURE: CT chest with contrast only. TECHNIQUE: Multiple contiguous axial images were obtained through the chest after administration of intravenous contrast. Auto Exposure Controls were utilized during the CT exam to meet ALARA standards for radiation dose reduction. DATE: August 24, 2020. COMPARISON: CT chest May 26, 2020. Additional comparison CT imaging dating back to November 15, 2016. PET CT July 12, 2016. INDICATION: 74-year-old male, followup pulmonary nodule. History of lung cancer. FINDINGS: There is a spiculated nodular appearing opacity in the left upper lobe measuring approximately 2.5 x 1.4 x 1.4 cm in size. This is essentially unchanged since May 26, 2020. This does appear mildly more prominent in central fullness dating back to January 15, 2019. There is a pleurally-based 6 mm left upper lobe pulmonary nodule on axial image 55 which is unchanged. There are subtle small foci of reticular nodularity in the more inferior aspect of the left upper lobe which are new since May 26, 2020. There are mild upper lobe findings of emphysema. The patient is status post right upper lobectomy. There are mild linear opacities in the right middle lobe and right lower lobe likely reflecting scarring and/or atelectasis. There is a pleural-based nodule on the right on axial image 54 measuring 6 mm in size which is unchanged. There is opacification along the right mediastinal margin which is oriented predominantly in the anterior to posterior direction which is unchanged. There is no pneumothorax. There is no pleural effusion. There is no identified pulmonary embolus. The main pulmonary artery is normal in caliber. The heart is not enlarged. There is no pericardial effusion. There are atherosclerotic calcifications. The esophagus is abnormally distended with internal fluid contents. There is wall thickening and enhancement of the esophageal wall at the level of the mid to distal esophagus. This is also noted on the prior exam. There is no identified abnormally enlarged mediastinal, hilar, or axillary lymph node meeting CT size criteria for adenopathy. There is a 7 mm low-attenuation right renal lesion compatible with a benign cyst. There is a low-attenuation left adrenal nodule measuring 2.8 x 1.6 cm in size which is unchanged since comparison exam. There are compression deformities of T5 and T7 with exaggeration of thoracic kyphosis which are unchanged since at least May 2020. IMPRESSION: CT CHEST. 1. Spiculated nodular opacity in the left upper lobe is unchanged since May 26, 2020 and does appear mildly more prominent since January 2019 as previously described. 2. Redemonstrated abnormal wall thickening and mucosal enhancement of the esophagus with distended esophagus filled with fluid. This is also noted on the comparison study and is also as previously described. 3. Unchanged size of the left adrenal nodule. Dictated by: Dictated on workstation # [id number]
== END ==
LOC: RAD 12:13
PROVIDERS: ATTEND Nurse Practitioner Adult Health
DX: C34.11 Malignant neoplasm of upper lobe, right bronchus or lung (principal); J44.9 Chronic obstructive pulmonary disease, unspecified; E27.8 Other specified disorders of adrenal gland; K22.8 Other specified diseases of esophagus; R91.1 Solitary pulmonary nodule; Z90.2 Acquired absence of lung [part of]
CPT/HCPCS: 71260

== ENCOUNTER 2021-02-10 10:45 | Outpatient (RCR) | payer MEDICARE ==
[~2021-02-10 10:45] MED LIST changes: -CATHETER FLUSH 10 ML SYR IV PRN; -HOLD METFORMIN - RECEIVED CONTRAST 20 ML VIAL IV SCH; -IOHEXOL 350 MG/ML 100 ML (OMNIPAQUE 350) VIAL IV ONE; -NS 100 ML (IVPB) BAG IV ONE
[2021-02-10 11:44] LABS: BUN/CREATININE RATIO 18; CALCIUM 9.6 MG/DL (8.5-10.1); CARBON DIOXIDE 28 MMOL/L (21-32); CHLORIDE 106 MMOL/L (98-107); CREATININE SERUM 1.05 MG/DL (0.60-1.30); GFR ESTIMATED > 60; GLUCOSE 80 MG/DL (70-105); POTASSIUM 4.1 MMOL/L (3.6-5.0); SODIUM 142 MMOL/L (135-145)
== END 2021-05-11 | disposition home or self-care (01) ==
LOC: ONC 10:45
PROVIDERS: ATTEND Internal Medicine Hematology & Oncology
DX: C34.11 Malignant neoplasm of upper lobe, right bronchus or lung (principal); D69.3 Immune thrombocytopenic purpura; R91.1 Solitary pulmonary nodule; J43.9 Emphysema, unspecified; K22.8 Other specified diseases of esophagus; M43.8X4 Other specified deforming dorsopathies, thoracic region; E27.8 Other specified disorders of adrenal gland; M40.294 Other kyphosis, thoracic region; R93.89 Abnormal findings on diagnostic imaging of other specified body structures; Z92.21 Personal history of antineoplastic chemotherapy; Z92.3 Personal history of irradiation; Z90.2 Acquired absence of lung [part of]
CPT/HCPCS: 80048

== ENCOUNTER → 2021-02-10 | Outpatient (CLI) | payer MEDICARE ==
[~2021-02-10] MED LIST changes: -ALEN70TA5 PO; +ALEN70TA80 PO
--- NOTE | 2021-02-10 16:07 | Diagnostic Imaging Report ---
INDICATION: Lung cancer and shortness of breath. TECHNIQUE: Multiple contiguous axial images were obtained through the chest after administration of intravenous contrast. Auto Exposure Controls were utilized during the CT exam to meet ALARA standards for radiation dose reduction. Comparison is made to previous study of 08/24/2020. There is no new adenopathy in the mediastinum. Irregularity and thickening at the right mainstem bronchus appears unchanged compared to the prior study, with chronic atelectatic changes in the right upper lobe. There is thickening throughout the length of the esophagus with a large cystic structure superiorly which is probably a large esophageal diverticulum. There is no free pleural fluid. Lung parenchymal windows demonstrate right apical pleural thickening and chronic atelectatic changes in the right upper lung field appearing similar to the prior study of 08/24/2020. There are diffuse emphysematous changes and biapical parenchymal scarring. The spiculated nodular lesion in the left upper lobe described on the previous study is again noted about 2.6 x 1.1 cm in the axial plane, it appears similar to the prior study. There is no new abnormality in the lung parenchyma. Visualized portions of the upper abdomen demonstrate unchanged left adrenal enlargement. IMPRESSION: CT chest appears stable compared with 08/24/2020. The spiculated opacity in the left upper lobe has not changed from the previous study. Abnormal wall thickening throughout the esophagus with prominent dilatation of the upper esophagus with possible diverticulum again noted. Chronic appearing irregularity of the right mainstem bronchus is noted with chronic atelectatic changes and pleural thickening in the right apex. This finding is not changed compared to the prior study. There are diffuse emphysematous changes and areas of parenchymal scarring which are also similar to the prior study. Dictated by: Dictated on workstation # [id number]
== END ==
LOC: RAD 10:22
PROVIDERS: ATTEND Nurse Practitioner Adult Health
DX: C34.11 Malignant neoplasm of upper lobe, right bronchus or lung (principal); J43.9 Emphysema, unspecified; R93.89 Abnormal findings on diagnostic imaging of other specified body structures
CPT/HCPCS: 71260

== ENCOUNTER → 2021-05-18 | Outpatient (CLI) | payer MEDICARE ==
[2021-05-18 10:27] LABS: BASOPHILS # (AUTO) 0.1 10^3/uL (0.0-0.1); BASOPHILS % (AUTO) 1 % (0-10); EOSINOPHILS # (AUTO) 0.2 10^3/uL (0.0-0.3); EOSINOPHILS % (AUTO) 3 % (0-10); HEMATOCRIT 43 % (40-54); HEMOGLOBIN 13.8 g/dL (13.3-17.7); LYMPHOCYTES # (AUTO) 0.7 10^3/uL (1.0-4.0); LYMPHOCYTES % (AUTO) 11 % (12-44); MEAN CORPUSCULAR HEMOGLOBIN 29 pg (25-34); MEAN CORPUSCULAR HGB CONC 32 g/dL (32-36); MEAN CORPUSCULAR VOLUME 92 fL (80-99); MEAN PLATELET VOLUME 9.6 fL (9.0-12.2); MONOCYTES # (AUTO) 0.6 10^3/uL (0.0-1.0); MONOCYTES % (AUTO) 10 % (0-12); NEUTROPHILS # (AUTO) 4.6 10^3/uL (1.8-7.8); NEUTROPHILS % (AUTO) 75 % (42-75); PLATELET COUNT 171 10^3/uL (130-400); WHITE BLOOD COUNT 6.1 10^3/uL (4.3-11.0)
[2021-05-18 10:46] LABS: ALANINE AMINOTRANSFERASE 16 U/L (0-55); ALBUMIN 3.9 GM/DL (3.2-4.5); ALKALINE PHOSPHATASE 63 U/L (40-136); BILIRUBIN,TOTAL 0.9 MG/DL (0.1-1.0); BUN/CREATININE RATIO 15; CALCIUM 9.5 MG/DL (8.5-10.1); CARBON DIOXIDE 29 MMOL/L (21-32); CHLORIDE 106 MMOL/L (98-107); GFR ESTIMATED > 60; GLUCOSE 91 MG/DL (70-105); POTASSIUM 4.1 MMOL/L (3.6-5.0); SODIUM 141 MMOL/L (135-145)
== END ==
LOC: EDSTATUS 05-12 13:19 → ONC 10:01
PROVIDERS: ATTEND Internal Medicine Hematology & Oncology
DX: D69.3 Immune thrombocytopenic purpura (principal); I13.0 Hypertensive heart and chronic kidney disease with heart failure and stage 1 through stage 4 chronic kidney disease, or unspecified chronic kidney disease; I50.9 Heart failure, unspecified; N18.9 Chronic kidney disease, unspecified; D63.1 Anemia in chronic kidney disease; I25.10 Atherosclerotic heart disease of native coronary artery without angina pectoris; J44.9 Chronic obstructive pulmonary disease, unspecified; E78.2 Mixed hyperlipidemia; R91.1 Solitary pulmonary nodule; R91.8 Other nonspecific abnormal finding of lung field; Z92.21 Personal history of antineoplastic chemotherapy; Z85.118 Personal history of other malignant neoplasm of bronchus and lung; Z92.3 Personal history of irradiation
CPT/HCPCS: 80053; 85025; G0463; 99213

== ENCOUNTER → 2022-02-10 | Outpatient (CLI) | payer MEDICARE ==
[~2022-02-10] MED LIST changes: +CATHETER FLUSH 10 ML SYR IV PRN; +HOLD METFORMIN - RECEIVED CONTRAST 20 ML VIAL IV SCH; +IOHEXOL 350 MG/ML 100 ML (OMNIPAQUE 350) VIAL IV ONE; +NS 100 ML (IVPB) BAG IV ONE
[2022-02-10 11:40] LABS: BASOPHILS # (AUTO) 0.1 10^3/uL (0.0-0.1); BASOPHILS % (AUTO) 1 % (0-10); EOSINOPHILS # (AUTO) 0.1 10^3/uL (0.0-0.3); EOSINOPHILS % (AUTO) 2 % (0-10); HEMATOCRIT 42 % (40-54); HEMOGLOBIN 13.8 g/dL (13.3-17.7); LYMPHOCYTES # (AUTO) 0.7 10^3/uL (1.0-4.0); LYMPHOCYTES % (AUTO) 14 % (12-44); MEAN CORPUSCULAR HEMOGLOBIN 30 pg (25-34); MEAN CORPUSCULAR HGB CONC 33 g/dL (32-36); MEAN CORPUSCULAR VOLUME 92 fL (80-99); MEAN PLATELET VOLUME 9.8 fL (9.0-12.2); MONOCYTES # (AUTO) 0.5 10^3/uL (0.0-1.0); MONOCYTES % (AUTO) 9 % (0-12); NEUTROPHILS # (AUTO) 3.8 10^3/uL (1.8-7.8); NEUTROPHILS % (AUTO) 74 % (42-75); PLATELET COUNT 160 10^3/uL (130-400); WHITE BLOOD COUNT 5.1 10^3/uL (4.3-11.0)
[2022-02-10 12:01] LABS: BILIRUBIN,TOTAL 0.8 MG/DL (0.1-1.0); CALCIUM 9.3 MG/DL (8.5-10.1); CREATININE SERUM 1.04 MG/DL (0.60-1.30); POTASSIUM 4.2 MMOL/L (3.6-5.0); TOTAL PROTEIN 6.8 GM/DL (6.4-8.2)
--- NOTE | 2022-02-10 14:51 | Diagnostic Imaging Report ---
Procedure: CT chest with contrast only. Technique: Multiple contiguous axial images were obtained through the chest after administration of intravenous contrast. Auto Exposure Controls were utilized during the CT exam to meet ALARA standards for radiation dose reduction. Date: February 10, 2022. Indication: 76-year-old male, history of lung cancer. Shortness of breath. Comparison: CT chest February 10, 2021. Findings: The patient is status post right upper lobectomy. There is a right middle lobe pulmonary nodule on axial image 61 measuring 7 mm in size which is unchanged since 2020. There are also mild linear opacities in the right middle lobe consistent with mild scarring which are unchanged since the comparison study. There are mild findings of centrilobular emphysema. There are predominantly linear opacities in the left upper lobe which are unchanged since the comparison exam. There is no identified new or enlarging pulmonary nodule. There is no pneumothorax. There are predominantly vertically oriented opacities along the right mediastinal margin likely reflecting treatment related changes. There are coronary artery calcifications and additional areas of atherosclerotic disease. The heart is not enlarged. There is no pericardial effusion. There is no identified abnormally enlarged mediastinal, hilar, or axillary lymph node meeting CT size criteria for adenopathy. There is dilation of the upper esophagus. There is mucosal enhancement along the length of the esophagus as well as diffuse esophageal wall thickening. This appearance is essentially unchanged since the comparison exam. There are low-attenuation renal lesions compatible with benign cysts. There are left adrenal nodules. One example is on axial image 148 and measures 2.2 cm in size. There is an additional left adrenal nodule on axial image 54 measuring 1.7 cm in size. These nodules are essentially unchanged in size since comparison exam. Internal attenuation is indeterminate on this postcontrast exam. There are compression deformities of T5 and T7 which are unchanged since at least 2019. There is no identified bone lesion concerning for a bone metastasis. There is no interval acute bony abnormality. Impression: 1. Status post right upper lobectomy with predominantly vertically oriented opacities on the right mediastinal margin compatible with treatment related changes. 2. No evidence to suggest residual or recurrent malignancy. 3. Stable 7 mm right middle lobe pulmonary nodule since at least 2019 consistent with benign etiology as well as focal scarring in the left upper lobe. 4. Findings of emphysema. 5. Stable left adrenal nodules which have indeterminate internal attenuation values. 6. Chronic compression deformities of T5 and T7. 7. Diffuse abnormal wall thickening and mucosal enhancement of the esophagus with distention of the esophagus with similar appearance dating back to August 24, 2020. This may relate to a chronic esophagitis and could be treatment related. Dictated by: Dictated on workstation # [id number]
== END ==
LOC: RAD 10:40
PROVIDERS: ATTEND Nurse Practitioner Adult Health
DX: J43.9 Emphysema, unspecified (principal); E27.9 Disorder of adrenal gland, unspecified; M43.8X4 Other specified deforming dorsopathies, thoracic region; Z85.3 Personal history of malignant neoplasm of breast; Z90.2 Acquired absence of lung [part of]
CPT/HCPCS: 36415; 71260; 80053; 85025